=== PATIENT | male | born 1950 | race Caucasian/White ===

== ENCOUNTER 2018-06-22 22:58 | Inpatient (IN) | payer BC, MEDICARE, OTHER ==
--- NOTE | 2018-06-22 23:26 | ED ---
SOB HPI - General Chief Complaint: Shortness of Breath Stated Complaint: Chest pain/MAEVE Time Seen by Provider: 06/22/18 23:12 Source: patient Mode of arrival: ambulatory Limitations: no limitations - History of Present Illness MD Complaint: shortness of breath, chest pain Onset/Timin -: days(s) Severity: moderate Quality: aching Consistency: constant Improves With: nothing Worsens With: inspiration Known History Of: COPD Associated Symptoms: chest pain, pain with inspiration - Related Data Home Oxygen Therapy: No Home Medications Medication Instructions Recorded Confirmed Dicyclomine [Bentyl] 20 mg PO BID 10/12/14 12/27/14 Fluticasone Nasal [place] [Flonase 2 spray EA NOSTRIL BID 10/12/14 12/27/14 Nasal [place]] Lovastatin [Mevacor] 40 mg PO HS 10/12/14 12/27/14 Montelukast [Singulair] 10 mg PO DAILY 10/12/14 12/27/14 Omeprazole [PriLOSEC] 10 mg PO DAILY 10/12/14 12/27/14 traZODone HCL [Desyrel] 100 mg PO HS 10/12/14 12/27/14 Aspirin 325 mg PO DAILY 12/24/14 12/27/14 Allergies Allergy/AdvReac Type Severity Reaction Status Date / Time No Known Allergies Allergy Verified 06/22/18 23:05 Review of Systems ROS Statement: Those systems with pertinent positive or pertinent negative responses have been documented in the HPI. ROS Other: All systems not noted in ROS Statement are negative. Constitutional: Denies: fever Respiratory: Reports: cough, dyspnea Cardiovascular: Reports: chest pain. Denies: edema, syncope Gastrointestinal: Denies: abdominal pain, vomiting Genitourinary: Reports: frequency. Denies: dysuria, hematuria Musculoskeletal: Denies: back pain Skin: Denies: rash Neurological: Denies: headache Past Medical History Past Medical History: GERD/Reflux, Hyperlipidemia, Renal Disease History of Any Multi-Drug Resistant Organisms: None Reported Past Surgical History: Orthopedic Surgery Additional Past Surgical History / Comment(s): Polyps from previous colonoscopy, EGD. Minor surgery on R knee. Past Anesthesia/Blood Transfusion Reactions: No Reported Reaction Past Psychological History: No Psychological Hx Reported Smoking Status: Former smoker Past Alcohol Use History: Occasional Past Drug Use History: None Reported - Past Family History Mother Family Medical History: Cancer Additional Family Medical History / Comment(s): Colon General Exam Limitations: no limitations General appearance: alert, in no apparent distress Head exam: Present: atraumatic, normocephalic Eye exam: Present: normal appearance. Absent: scleral icterus, conjunctival injection ENT exam: Present: normal oropharynx Neck exam: Present: normal inspection Respiratory exam: Present: normal lung sounds bilaterally. Absent: respiratory distress, wheezes, rales, rhonchi, stridor, chest wall tenderness Cardiovascular Exam: Present: regular rate, normal rhythm, normal heart sounds. Absent: systolic murmur, diastolic murmur, rubs, gallop GI/Abdominal exam: Present: soft. Absent: distended, tenderness, guarding, rebound, mass Extremities exam: Present: normal inspection, normal capillary refill. Absent: pedal edema, calf tenderness Back exam: Present: normal inspection. Absent: CVA tenderness (R), CVA tenderness (L) Neurological exam: Present: alert Skin exam: Present: warm, dry, intact, normal color. Absent: rash Course Vital Signs 06/22/18 23:01 Temperature 98.7 F Pulse Rate 103 H Respiratory 18 Rate Blood Pressure 167/91 O2 Sat by Pulse 97 Oximetry Medical Decision Making - Lab Data Result diagrams: 06/22/18 23:20 06/22/18 23:20 Lab Results 06/22/18 06/22/18 06/22/18 Range/Units 23:20 23:20 23:20 WBC 13.1 H (3.8-10.6) k/uL RBC 4.68 (4.30-5.90) m/uL Hgb 14.0 (13.0-17.5) gm/dL Hct 38.8 L (39.0-53.0) % MCV 83.0 (80.0-100.0) fL MCH 29.9 (25.0-35.0) pg MCHC 36.1 (31.0-37.0) g/dL RDW 15.7 H (11.5-15.5) % Plt Count 227 (150-450) k/uL Neutrophils % 66 % Lymphocytes % 18 % Monocytes % 9 % Eosinophils % 4 % Basophils % 1 % Neutrophils # 8.6 H (1.3-7.7) k/uL Lymphocytes # 2.4 (1.0-4.8) k/uL Monocytes # 1.2 H (0-1.0) k/uL Eosinophils # 0.6 (0-0.7) k/uL Basophils # 0.1 (0-0.2) k/uL PT (9.0-12.0) sec INR (<1.2) APTT (22.0-30.0) sec D-Dimer (<0.60) mg/L FEU Sodium 139 (137-145) mmol/L Potassium 4.0 (3.5-5.1) mmol/L Chloride 100 (98-107) mmol/L Carbon Dioxide 27 (22-30) mmol/L Anion Gap 12 mmol/L BUN 37 H (9-20) mg/dL Creatinine 2.59 H (0.66-1.25) mg/dL Est GFR (CKD-EPI)AfAm 29 (>60 ml/min/1.73 sqM) Est GFR (CKD-EPI)NonAf 25 (>60 ml/min/1.73 sqM) Glucose 117 H (74-99) mg/dL Calcium 11.5 H (8.4-10.2) mg/dL Total Bilirubin 0.4 (0.2-1.3) mg/dL AST 27 (17-59) U/L ALT 38 (21-72) U/L Alkaline Phosphatase 84 (38-126) U/L Troponin I (0.000-0.034) ng/mL NT-Pro-B Natriuret Pep 110 pg/mL Total Protein 7.3 (6.3-8.2) g/dL Albumin 4.1 (3.5-5.0) g/dL Urine Color Urine Appearance (Clear) Urine pH (5.0-8.0) Ur Specific [place] (1.001-1.035) Urine Protein (Negative) Urine Glucose (UA) (Negative) Urine Ketones (Negative) Urine Blood (Negative) Urine Nitrite (Negative) Urine Bilirubin (Negative) Urine Urobilinogen (<2.0) mg/dL Ur Leukocyte Esterase (Negative) 06/22/18 06/22/18 06/23/18 Range/Units 23:20 23:20 00:46 WBC (3.8-10.6) k/uL RBC (4.30-5.90) m/uL Hgb (13.0-17.5) gm/dL Hct (39.0-53.0) % MCV (80.0-100.0) fL MCH (25.0-35.0) pg MCHC (31.0-37.0) g/dL RDW (11.5-15.5) % Plt Count (150-450) k/uL Neutrophils % % Lymphocytes % % Monocytes % % Eosinophils % % Basophils % % Neutrophils # (1.3-7.7) k/uL Lymphocytes # (1.0-4.8) k/uL Monocytes # (0-1.0) k/uL Eosinophils # (0-0.7) k/uL Basophils # (0-0.2) k/uL PT 9.5 (9.0-12.0) sec INR 0.9 (<1.2) APTT 25.1 (22.0-30.0) sec D-Dimer 1.71 H (<0.60) mg/L FEU Sodium (137-145) mmol/L Potassium (3.5-5.1) mmol/L Chloride (98-107) mmol/L Carbon Dioxide (22-30) mmol/L Anion Gap mmol/L BUN (9-20) mg/dL Creatinine (0.66-1.25) mg/dL Est GFR (CKD-EPI)AfAm (>60 ml/min/1.73 sqM) Est GFR (CKD-EPI)NonAf (>60 ml/min/1.73 sqM) Glucose (74-99) mg/dL Calcium (8.4-10.2) mg/dL Total Bilirubin (0.2-1.3) mg/dL AST (17-59) U/L ALT (21-72) U/L Alkaline Phosphatase (38-126) U/L Troponin I <0.012 (0.000-0.034) ng/mL NT-Pro-B Natriuret Pep pg/mL Total Protein (6.3-8.2) g/dL Albumin (3.5-5.0) g/dL Urine Color Light Yellow Urine Appearance Clear (Clear) Urine pH 7.0 (5.0-8.0) Ur Specific [place] 1.012 (1.001-1.035) Urine Protein Negative (Negative) Urine Glucose (UA) Negative (Negative) Urine Ketones Negative (Negative) Urine Blood Negative (Negative) Urine Nitrite Negative (Negative) Urine Bilirubin Negative (Negative) Urine Urobilinogen <2.0 (<2.0) mg/dL Ur Leukocyte Esterase Negative (Negative) - EKG Data -: EKG Interpreted by Me EKG shows normal: sinus rhythm, axis (Normal), intervals (Normal), QRS complexes (Normal), ST-T waves (Normal) Rate: normal (Rate 97 bpm) Disposition Clinical Impression: Chest pain Disposition: ADMITTED IP TO THIS HOSP Condition: Good Referrals: Samuel Brooke MD [Primary Care Provider] - 1-2 days
[2018-06-22 23:50] LABS: Basophils # (A) 0.1 k/uL (0-0.2); Basophils % (A) 1 %; Eosinophils # (A) 0.6 k/uL (0-0.7); Eosinophils % (A) 4 %; HCT 38.8 % (39.0-53.0); Lymphocytes # (A) 2.4 k/uL (1.0-4.8); Lymphocytes % (A) 18 %; MCH 29.9 pg (25.0-35.0); MCHC 36.1 g/dL (31.0-37.0); Mean Platelet Volume 10.8; Monocytes # (A) 1.2 k/uL (0-1.0); Monocytes % (A) 9 %; Neutrophils # (A) 8.6 k/uL (1.3-7.7); Neutrophils % (A) 66 %; Platelet Count 227 k/uL (150-450); RBC 4.68 m/uL (4.30-5.90); RDW 15.7 % (11.5-15.5); WBC 13.1 k/uL (3.8-10.6)
[2018-06-23] LABS: Albumin 4.1 g/dL (3.5-5.0); Calcium 11.5 mg/dL (8.4-10.2); Total Bilirubin 0.4 mg/dL (0.2-1.3); Total Protein 7.3 g/dL (6.3-8.2)
[2018-06-23 00:08] LABS: INR 0.9 (<1.2)
[2018-06-23 00:09] LABS: Partial Thromboplastin Time 25.1 sec (22.0-30.0); Prothrombin Time 9.5 sec (9.0-12.0)
[2018-06-23 00:13] LABS: D-Dimer 1.71 mg/L FEU (<0.60)
[2018-06-23] MEDS ORDERED: ENOXAPARIN 100 MG/ML SYRINGE SQ STA (00:30)
[2018-06-23 01:27] LABS: Appearance,Urine Clear (Clear); Bilirubin,Urine Negative (Negative); Blood,Urine Negative (Negative); Color,Urine Light Yellow; Glucose,Urine (UA) Negative (Negative); Ketones,Urine Negative (Negative); Leukocyte Esterase,Urine Negative (Negative); Nitrite,Urine Negative (Negative); Protein,Urine Negative (Negative); Specific Gravity,Urine 1.012 (1.001-1.035); Urobilinogen,Urine <2.0 mg/dL (<2.0)
--- NOTE | 2018-06-23 01:37 | XR ---
EXAM: XR Chest, 2 Views CLINICAL HISTORY: ITS.REASON XR Reason: difficulty breathing TECHNIQUE: Frontal and lateral views of the chest. COMPARISON: No relevant prior studies available. FINDINGS: Lungs: Left lower lobe atelectasis versus infiltrate. Pleural space: Small left pleural effusion. No pneumothorax. Heart: Unremarkable. No cardiomegaly. Mediastinum: Unremarkable. Bones/joints: No acute fracture. IMPRESSION: 1. Small left pleural effusion. 2. Left lower lobe atelectasis versus infiltrate. Correlate with CT.
[2018-06-23] MEDS ORDERED: NITROGLYCERIN SL TABS 0.4 MG TAB SUBLINGUAL PRN (02:17)
[2018-06-23] MEDS: ALBUTEROL NEBULIZED 2.5 MG/3 ML INHALATION SCH ×4 (07:34→19:48)
--- NOTE | 2018-06-23 07:40 | P.CRDCN ---
History of Present Illness Consult date: 06/23/18 Chief complaint: Chest pain History of present illness: This is a pleasant 67-year-old gentleman with a past medical history significant for chronic kidney disease presented to the hospital complaining of chest discomfort. For the last several days, he has been expressing chest discomfort for the last several days. The patient described the discomfort as a sharp kind of discomfort, on the left side of the chest, and clearly stated that the chest discomfort is worse once he takes a deep breath. The chest discomfort is not worse with exertion. No specific symptoms of shortness of breath, dizziness or lightheadedness, heart racing or fluttering, or syncope. The patient does not have any history of coronary artery disease, diabetes, hypertension, or dyslipidemia. 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 The EKG showed sinus rhythm without any ischemic ST or T-wave abnormalities. The cardiac enzymes were checked and came in to be unremarkable. The chest x-ra y did not show any acute abnormalities. A d-dimer came in to be abnormal and the patient is in process of having a VQ scan. Please note that the creatinine is quite abnormal and the patient stated that he was diagnosed with chronic kidney disease in the past. Past Medical History Past Medical History: COPD, GERD/Reflux, Hyperlipidemia History of Any Multi-Drug Resistant Organisms: None Reported Past Surgical History: Orthopedic Surgery Additional Past Surgical History / Comment(s): Polyps from previous colonoscopy, EGD. Minor surgery on R knee. Past Anesthesia/Blood Transfusion Reactions: No Reported Reaction Past Psychological History: No Psychological Hx Reported Smoking Status: Former smoker Past Alcohol Use History: Occasional Past Drug Use History: None Reported - Past Family History Mother Family Medical History: Cancer Additional Family Medical History / Comment(s): Colon Medications and Allergies Home Medications Medication Instructions Recorded Confirmed Type Dicyclomine [Bentyl] 20 mg PO BID 10/12/14 06/23/18 History Fluticasone Nasal [place] [Flonase 2 spray EA NOSTRIL BID 10/12/14 06/23/18 History Nasal [place]] Montelukast [Singulair] 10 mg PO DAILY 10/12/14 06/23/18 History traZODone HCL [Desyrel] 100 mg PO HS 10/12/14 06/23/18 History Aspirin 81 mg PO DAILY 12/24/14 06/23/18 History Allergies Allergy/AdvReac Type Severity Reaction Status Date / Time No Known Allergies Allergy Verified 06/22/18 23:05 Physical Exam Vitals: Vital Signs Temp Pulse Pulse Resp BP BP Pulse Ox 06/23/18 04:00 16 06/23/18 03:53 98.4 F 81 16 161/90 97 06/23/18 02:36 86 20 160/94 97 06/22/18 23:01 98.7 F 103 H 18 167/91 97 Intake and Output 06/22/18 06/23/18 06/23/18 22:59 06:59 14:59 Intake Total 30 Balance 30 Intake: Amount of Fluid Infused ( 30 ml) Other: Voiding Method Toilet # Voids 1 Weight 98.1 kg - Constitutional General appearance: no acute distress - Respiratory Respiratory: bilateral: CTA - Cardiovascular Rhythm: regular Heart sounds: normal: S1, S2 Abnormal Heart Sounds: systolic murmur Results 06/22/18 23:20 06/22/18 23:20 Cardiac Enzymes 06/22/18 06/22/18 06/23/18 Range/Units 23:20 23:20 05:34 AST 27 (17-59) U/L Troponin I <0.012 <0.012 (0.000-0.034) ng/mL Coagulation 06/22/18 Range/Units 23:20 PT 9.5 (9.0-12.0) sec APTT 25.1 (22.0-30.0) sec CBC 06/22/18 Range/Units 23:20 WBC 13.1 H (3.8-10.6) k/uL RBC 4.68 (4.30-5.90) m/uL Hgb 14.0 (13.0-17.5) gm/dL Hct 38.8 L (39.0-53.0) % Plt Count 227 (150-450) k/uL Comprehensive Metabolic Panel 06/22/18 Range/Units 23:20 Sodium 139 (137-145) mmol/L Potassium 4.0 (3.5-5.1) mmol/L Chloride 100 (98-107) mmol/L Carbon Dioxide 27 (22-30) mmol/L BUN 37 H (9-20) mg/dL Creatinine 2.59 H (0.66-1.25) mg/dL Glucose 117 H (74-99) mg/dL Calcium 11.5 H (8.4-10.2) mg/dL AST 27 (17-59) U/L ALT 38 (21-72) U/L Alkaline Phosphatase 84 (38-126) U/L Total Protein 7.3 (6.3-8.2) g/dL Albumin 4.1 (3.5-5.0) g/dL Current Medications Generic Name Dose Route Start Last Admin Trade Name Freq PRN Reason Stop Dose Admin Albuterol Sulfate 2.5 mg 06/23/18 08:00 06/23/18 07:34 Ventolin Nebulized INHALATION 2.5 mg RT-QID WALLY Administration Aspirin 325 mg 06/24/18 09:00 Aspirin PO DAILY WALLY Atorvastatin Calcium 10 mg 06/23/18 21:00 Lipitor PO HS WALLY Fluticasone Propionate 2 spray 06/23/18 09:00 Flonase Nasal [place] EA NOSTRIL BID WALLY Montelukast Sodium 10 mg 06/23/18 09:00 Singulair PO DAILY WALLY Nitroglycerin 0.4 mg 06/23/18 02:17 Nitrostat SUBLINGUAL Q5M PRN Chest Pain Pantoprazole Sodium 40 mg 06/23/18 09:00 Protonix PO DAILY WALLY Trazodone HCl 100 mg 06/23/18 21:00 Desyrel PO HS WALLY Intake and Output 06/22/18 06/23/18 06/23/18 22:59 06:59 14:59 Intake Total 30 Balance 30 Intake: Amount of Fluid Infused ( 30 ml) Other: Voiding Method Toilet # Voids 1 Weight 98.1 kg 06/22/18 23:20 06/22/18 23:20 Assessment and Plan Assessment: Assessment #1 atypical/pleuritic chest discomfort #2 abnormal d-dimer #3 chronic kidney disease Plan #1 acute coronary event was ruled out. The EKG is unremarkable and enzymes are unremarkable #2 PE to be ruled out. The patient is in process of having VQ scan #3 we'll get an echocardiogram was Doppler #4 follow-up with the patient. Thank you for allowing us participate in his care
[2018-06-23 10:15] LABS: Basophils % (A) 0 %; Eosinophils # (A) 0.4 k/uL (0-0.7); Eosinophils % (A) 3 %; HCT 39.6 % (39.0-53.0); HGB 13.1 gm/dL (13.0-17.5); Lymphocytes # (A) 1.8 k/uL (1.0-4.8); Lymphocytes % (A) 16 %; MCH 28.9 pg (25.0-35.0); MCHC 32.9 g/dL (31.0-37.0); MCV 87.7 fL (80.0-100.0); Mean Platelet Volume 8.4; Monocytes # (A) 1.1 k/uL (0-1.0); Monocytes % (A) 10 %; Neutrophils # (A) 7.7 k/uL (1.3-7.7); Neutrophils % (A) 69 %; Platelet Count 196 k/uL (150-450); RBC 4.52 m/uL (4.30-5.90); WBC 11.3 k/uL (3.8-10.6)
[2018-06-23 10:19] LABS: Calcium 11.4 mg/dL (8.4-10.2); Potassium 4.4 mmol/L (3.5-5.1)
--- NOTE | 2018-06-23 10:39 | NM ---
EXAMINATION TYPE: NM pul vent and perfuse DATE OF EXAM: 06/23/2018 COMPARISON: Chest x-ray 06/22/2018 HISTORY: Chest pain and difficulty breathing, cough TECHNIQUE: Utilizing inhalation of 35.7 mCi Tc 99m DTPA aerosol and intravenous injection of 5.0 mCi of Tc 99m MAA, ventilation and perfusion images are acquired post injection in multiple projections. FINDINGS: Ventilation/perfusion mismatches noted on the RAMIRO view in the left upper lobe. IMPRESSION: Intermediate probability for pulmonary embolism.
[2018-06-23] MEDS ORDERED: HEPARIN SODIUM,PORCINE 5,000 UNIT/ML 1 ML VIAL IV PRN (11:29)
[2018-06-23] MEDS ORDERED: HEPARIN SODIUM,PORCINE 10,000 UNIT/ML 1 ML VIAL IV ONE (11:29)
--- NOTE | 2018-06-23 11:58 | ECHOF ---
Referral Reason:cp MEASUREMENTS -------- HEIGHT: 182.9 cm WEIGHT: 98.0 kg BP: 157/90 RVIDd: 3.5 cm (< 3.3) IVSd: 1.5 cm (0.6 - 1.1) LVIDd: 4.9 cm (3.9 - 5.3) LVPWd: 1.5 cm (0.6 - 1.1) IVSs: 1.7 cm LVIDs: 3.4 cm LVPWs: 1.7 cm Ao Diam: 3.5 cm (2.0 - 3.7) AV Cusp: 2.5 cm (1.5 - 2.6) LA Diam: 2.7 cm (2.7 - 3.8) MV EXCURSION: 13.883 mm (> 18.000) MV EF SLOPE: 119 mm/s (70 - 150) EPSS: 0.6 cm MV E Mur[place]: 0.59 m/s MV DecT: 222 ms MV A [place]: 0.74 m/s MV E/A Ratio: 0.80 RAP: 5.00 mmHg RVSP: 24.34 mmHg FINDINGS -------- Sinus rhythm. This was a technically adequate study. The left ventricular size is normal. There is moderate concentric left ventricular hypertrophy. O verall left ventricular systolic function is low-normal with, an EF between 50 - 55 %. The right ventricle is mildly enlarged. The left atrial size is normal. The right atrial size is normal. The aortic valve is trileaflet and appears structurally normal. There is trace mitral regurgitation. Trace tricuspid regurgitation present. The right ventricular systolic pressure, as measured by Dopp ler, is 24.34mmHg. Pulmonic valve appears structurally normal. The aortic root size is normal. IVC Not well visulized. There is no pericardial effusion. CONCLUSIONS -------- 1. Sinus rhythm. 2. This was a technically adequate study. 3. The left ventricular size is normal. 4. There is moderate concentric left ventricular hypertrophy. 5. Overall left ventricular systolic function is low-normal with, an EF between 50 - 55 %. 6. The right ventricle is mildly enlarged. 7. The left atrial size is normal. 8. The right atrial size is normal. 9. The aortic valve is trileaflet and appears structurally normal. 10. There is trace mitral regurgitation. 11. Trace tricuspid regurgitation present. 12. The right ventricular systolic pressure, as measured by Doppler, is 24.34mmHg. 13. Pulmonic valve appears structurally normal. 14. The aortic root size is normal. 15. IVC Not well visulized. 16. There is no pericardial effusion. [employer]KER: Fallon Lopez RDCS
--- NOTE | 2018-06-23 12:07 | P.CNPUL ---
History of Present Illness Consult date: 06/23/18 Reason for consult: chest pain History of present illness: This is a 67-year-old male patient, an ex-smoker who quit smoking. The patient carries at least [id number] smoking history. The patient is retired. The patient came into the emergency department yesterday because of an acute left- sided chest pain which is pleuritic in nature. No cough. No sputum production. No fever or chills. No cough pain. No leg swelling. No previous history of DVT or pulmonary embolism. No 72 coronary artery disease. The patient's cardiac enzymes have been negative. D-dimer is at 1.7. The patient had an abnormal renal function with a creatinine of 2.59. The chronicity of this issue is not known. White cell count is not elevated at 11.3. The BNP is not elevated. The patient is currently on IV heparin. The patient was seen by cardiology. Echo was ordered and results are still pending. Meanwhile, a VQ scan was ordered and it was of a intermediate probability with some mismatches noted in the left upper lobe area. The chest x-ray shows limited infiltration of the left lung base along with some diminished breath sounds on examination. Review of Systems Constitutional: Denies chills, Denies fever Eyes: denies as per HPI, denies blurred vision, denies bulging eye, denies decreased vision, denies diplopia, denies discharge, denies dry eye, denies irritation, denies itching, denies pain, denies photophobia, denies loss of peripheral vision, denies loss of vision, denies tunnel vision/blind spots Ears: deny: decreased hearing, ear discharge, earache, tinnitus Ears, nose, mouth and throat: Denies headache, Denies sore throat Breasts: absent: as per HPI, gynecomastia Cardiovascular: Reports chest pain Respiratory: Denies cough Gastrointestinal: Reports as per HPI Genitourinary: Reports as per HPI Musculoskeletal: Reports as per HPI Musculoskeletal: absent: ankle pain, ankle stiffness, ankle swelling, as per HPI, elbow pain, elbow stiffness, elbow swelling, foot pain, foot stiffness, foot swelling, hand pain, hand stiffness, hand swelling, hip pain, hip stiffness, hip swelling, knee pain, knee stiffness, knee swelling, shoulder p ain, shoulder stiffness, shoulder swelling, wrist pain, wrist stiffness, wrist swelling Integumentary: Reports as per HPI Neurological: Reports as per HPI Psychiatric: Reports as per HPI Endocrine: Reports as per HPI Hematologic/Lymphatic: Reports as per HPI Allergic/Immunologic: Reports as per HPI Past Medical History Past Medical History: COPD, GERD/Reflux, Hyperlipidemia History of Any Multi-Drug Resistant Organisms: None Reported Past Surgical History: Orthopedic Surgery Additional Past Surgical History / Comment(s): Polyps from previous colonoscopy, EGD. Minor surgery on R knee. Past Anesthesia/Blood Transfusion Reactions: No Reported Reaction Past Psychological History: No Psychological Hx Reported Smoking Status: Former smoker Past Alcohol Use History: Occasional Past Drug Use History: None Reported - Past Family History Mother Family Medical History: Cancer Additional Family Medical History / Comment(s): Colon Medications and Allergies Home Medications Medication Instructions Recorded Confirmed Type Dicyclomine [Bentyl] 20 mg PO DAILY 10/12/14 06/23/18 History Fluticasone Nasal [place] [Flonase 2 spray EA NOSTRIL BID 10/12/14 06/23/18 History Nasal [place]] Montelukast [Singulair] 10 mg PO DAILY 10/12/14 06/23/18 History traZODone HCL [Desyrel] 100 mg PO HS 10/12/14 06/23/18 History Aspirin EC [Ecotrin Low Dose] 81 mg PO DAILY 06/23/18 06/23/18 History Budesonide-Formot 160-4.5 Mcg 2 puff INHALATION RT-BID 06/23/18 06/23/18 History [Symbicort 160-4.5 Mcg Inhaler] Allergies Allergy/AdvReac Type Severity Reaction Status Date / Time No Known Allergies Allergy Verified 06/23/18 08:44 Physical Exam Vitals: Vital Signs Temp Pulse Pulse Resp BP BP Pulse Ox 06/23/18 10:52 80 06/23/18 10:46 80 06/23/18 07:48 76 06/23/18 07:36 80 97 06/23/18 07:25 98.2 F 79 18 157/90 97 06/23/18 04:00 16 06/23/18 03:53 98.4 F 81 16 161/90 97 06/23/18 02:36 86 20 160/94 97 06/22/18 23:01 98.7 F 103 H 18 167/91 97 Intake and Output 06/22/18 06/23/18 06/23/18 22:59 06:59 14:59 Intake Total 30 Balance 30 Intake: Amount of Fluid Infused ( 30 ml) Other: Voiding Method Toilet Toilet # Voids 1 Weight 98.1 kg The patient appeared well nourished and normally developed. Vital signs as documented. Head exam is unremarkable. No scleral icterus or corneal arcus noted. Neck is without jugular venous distension, thyromegaly, or carotid bruits. Carotid upstrokes are brisk bilaterally. Lungs revealed diminished breath sounds bilaterally however it's minimally diminished in the left lung base. No wheezes. No rhonchi. No crackles.. Cardiac exam reveals the PMI to be normally sized and situated. Rhythm is regular. First and second heart sounds normal. No murmurs, rubs or gallops. Abdominal exam reveals normal bowel sounds, no masses, no organomegaly and no aortic enlargement. Extremities are nonedematous and both femoral and pedal pulses are normal.Examination of the skin revealed no evidence of significant rashes, suspicious appearing nevi or other concerning lesions. Neurologically the patient is awake and alert and there is no focal neurological deficits. Psychiatric the patient is within normal without any active anxiety or depression. Results - Laboratory Findings CBC and BMP: 06/23/18 05:34 06/23/18 05:34 PT/INR, D-dimer PT 9.5 sec (9.0-12.0) 06/22/18 23:20 INR 0.9 (<1.2) 06/22/18 23:20 D-Dimer 1.71 mg/L FEU (<0.60) H 06/22/18 23:20 Abnormal lab findings: Abnormal Labs 06/22/18 06/22/18 06/22/18 23:20 23:20 23:20 WBC 13.1 H Hct 38.8 L RDW 15.7 H Neutrophils # 8.6 H Monocytes # 1.2 H D-Dimer 1.71 H BUN 37 H Creatinine 2.59 H Glucose 117 H Calcium 11.5 H 06/23/18 06/23/18 05:34 05:34 WBC 11.3 H Hct RDW Neutrophils # Monocytes # 1.1 H D-Dimer BUN 34 H Creatinine 2.52 H Glucose 108 H Calcium 11.4 H - Diagnostic Findings Chest x-ray: image reviewed Assessment and Plan Plan: Assessment 1 acute pleuritic left-sided chest pain with a mild elevation of the d-dimer at 1.7 and abnormal VQ scan with a mismatch involving left upper lobe. Consider pulmonary embolism. Currently on IV heparin 2 Abnormal creatinine, chronic kidney disease and the patient has a normal urinalysis 3 COPD 4 hyperlipidemia 5 history of depression 6 hypercalcemia with a calcium level of 11.5 Plan Will continued IV heparin for now as there is a quite high suspicion for pulmonary embolism. I am unable to do a CT angios of the chest. Nevertheless, I think we should hydrate the patient IV fluids and consider CT angiogram if the renal function normalizes. Meanwhile, we can get a Doppler of the lower extremity to see there is any DVT involving the lower extremities. Echocardiogram to assess LV function and look for any significant pulmonary hypertension. Intact PTH level. Monitor electrolytes. We'll continue to follow.
[2018-06-23 12:15] LABS: Basophils # (A) 0.1 k/uL (0-0.2); Basophils % (A) 1 %; Eosinophils # (A) 0.2 k/uL (0-0.7); Eosinophils % (A) 2 %; HCT 40.2 % (39.0-53.0); HGB 14.2 gm/dL (13.0-17.5); Lymphocytes # (A) 1.4 k/uL (1.0-4.8); Lymphocytes % (A) 12 %; MCH 29.8 pg (25.0-35.0); MCHC 35.2 g/dL (31.0-37.0); MCV 84.6 fL (80.0-100.0); Mean Platelet Volume 7.6; Monocytes # (A) 1.1 k/uL (0-1.0); Monocytes % (A) 9 %; Neutrophils % (A) 75 %; Platelet Count 238 k/uL (150-450); RBC 4.75 m/uL (4.30-5.90); RDW 13.4 % (11.5-15.5)
[2018-06-23 12:24] LABS: INR 0.9 (<1.2); Partial Thromboplastin Time 28.5 sec (22.0-30.0); Prothrombin Time 9.8 sec (9.0-12.0)
--- NOTE | 2018-06-23 12:56 | P.HPIM ---
History of Present Illness H&P Date: 06/23/18 Chief Complaint: Chest pain and shortness of breath This is a 67-year-old male, patient of Dr. Brooke. He has a known past medical history of COPD, GERD, hyperlipidemia and possible chronic kidney disease. He is also an ex smoker. Patient presents to the ER with complaints of left-sided chest pain. Pain has been intermittent worse with taking a deep breath. Initially he was admitted to observation and cardiology was consulted. Troponins are negative 2 sets. EKG showing normal sinus rhythm. Patient was found have elevated d-dimer of 1.71. He underwent a VQ scan showing intermediate probability of PE. He was started on IV heparin and pulmonary service was placed on consults. Patient had chest x-ray showing small left pleural effusion left lower lobe atelectasis versus infiltrate. Patient denies cough, fever, chills or sweats. Denies any nausea or vomiting. Denies any bowel movement changes or urinary symptoms. Patient does report where the left-sided chest pain is located behind the left breast he did have swelling and felt a lump in that area with nipple drainage that had started in November. I'm he has had no further drainage since November. He reports still feeling a lump. There is no redness or erythema. Ultrasound of the left breast and consult for infectious disease in place. Creatinine is 2.59. Patient reports the last time he had seen Dr. Brooke his kidneys had come back to normal. Nephrology will be consulted. Patient also had elevated calcium level of 11.5. Repeat calcium of 11.4. Pulmonary has ordered parathyroid hormone level. Patient will be changed to inpatient status. Patient is also receiving IV fluids and PTH level ordered by pulmonary service. Review of Systems Please refer to HPI otherwise unremarkable Past Medical History Past Medical History: COPD, GERD/Reflux, Hyperlipidemia History of Any Multi-Drug Resistant Organisms: None Reported Past Surgical History: Orthopedic Surgery Additional Past Surgical History / Comment(s): Polyps from previous colonoscopy, EGD. Minor surgery on R knee. Past Anesthesia/Blood Transfusion Reactions: No Reported Reaction Past Psychological History: No Psychological Hx Reported Smoking Status: Former smoker Past Alcohol Use History: Occasional Past Drug Use History: None Reported - Past Family History Mother Family Medical History: Cancer Additional Family Medical History / Comment(s): Colon Medications and Allergies Home Medications Medication Instructions Recorded Confirmed Type Dicyclomine [Bentyl] 20 mg PO DAILY 10/12/14 06/23/18 History Fluticasone Nasal [place] [Flonase 2 spray EA NOSTRIL BID 10/12/14 06/23/18 History Nasal [place]] Montelukast [Singulair] 10 mg PO DAILY 10/12/14 06/23/18 History traZODone HCL [Desyrel] 100 mg PO HS 10/12/14 06/23/18 History Aspirin EC [Ecotrin Low Dose] 81 mg PO DAILY 06/23/18 06/23/18 History Budesonide-Formot 160-4.5 Mcg 2 puff INHALATION RT-BID 06/23/18 06/23/18 History [Symbicort 160-4.5 Mcg Inhaler] Allergies Allergy/AdvReac Type Severity Reaction Status Date / Time No Known Allergies Allergy Verified 06/23/18 08:44 Physical Exam Vitals: Vital Signs Temp Pulse Pulse Resp BP BP Pulse Ox 06/23/18 11:40 98.2 F 94 18 165/90 96 06/23/18 10:52 80 06/23/18 10:46 80 06/23/18 07:48 76 06/23/18 07:36 80 97 06/23/18 07:25 98.2 F 79 18 157/90 97 06/23/18 04:00 16 06/23/18 03:53 98.4 F 81 16 161/90 97 06/23/18 02:36 86 20 160/94 97 06/22/18 23:01 98.7 F 103 H 18 167/91 97 Intake and Output 06/22/18 06/23/18 06/23/18 22:59 06:59 14:59 Intake Total 30 Balance 30 Intake: Amount of Fluid Infused ( 30 ml) Other: Voiding Method Toilet Toilet # Voids 1 Weight 98.1 kg Head normocephalic Neck supple Lungs clear to auscultation bilaterally no wheezing or crackles Heart regular rate and rhythm S1-S2, no rub or gallop Abdomen is soft nontender nondistended positive bowel sounds no hepatosplenomegaly Extremities no edema Neuro alert and orientated to 3 Breast: Left breast tender above the nipple at 12 o'clock position. Small tender lump is palpable. No redness. No drainage. However right breast also has the same raised area but is nontender Results CBC & Chem 7: 06/23/18 11:57 06/23/18 05:34 Labs: Abnormal Lab Results - Last 24 Hours (Table) 06/22/18 06/22/18 06/22/18 Range/Units 23:20 23:20 23:20 WBC 13.1 H (3.8-10.6) k/uL Hct 38.8 L (39.0-53.0) % RDW 15.7 H (11.5-15.5) % Neutrophils # 8.6 H (1.3-7.7) k/uL Monocytes # 1.2 H (0-1.0) k/uL D-Dimer 1.71 H (<0.60) mg/L FEU BUN 37 H (9-20) mg/dL Creatinine 2.59 H (0.66-1.25) mg/dL Glucose 117 H (74-99) mg/dL Calcium 11.5 H (8.4-10.2) mg/dL 06/23/18 06/23/18 06/23/18 Range/Units 05:34 05:34 11:57 WBC 11.3 H 12.0 H (3.8-10.6) k/uL Hct (39.0-53.0) % RDW (11.5-15.5) % Neutrophils # 9.0 H (1.3-7.7) k/uL Monocytes # 1.1 H 1.1 H (0-1.0) k/uL D-Dimer (<0.60) mg/L FEU BUN 34 H (9-20) mg/dL Creatinine 2.52 H (0.66-1.25) mg/dL Glucose 108 H (74-99) mg/dL Calcium 11.4 H (8.4-10.2) mg/dL Thrombosis Risk Factor Assmnt - Choose All That Apply Any of the Below Risk Factors Present?: Yes Each Factor Represents 1 point: Abnormal pulmonary function (COPD), Hx of IBD, Obesity (BMI >25) Other Risk Factors: No Other congenital or acquired thrombophilia - If yes, enter type in comment: No Thrombosis Risk Factor Assessment Total Risk Factor Score: 3 Thrombosis Risk Factor Assessment Level: Moderate Risk Assessment and Plan Assessment: 1. Acute left-sided pleuritic chest pain: With elevated d-dimer and VQ scan showing intermediate probability of PE. Patient has been placed on IV heparin. Pulmonary service has been consulted and appreciate their input. They have ordered venous Dopplers to rule out DVT. We are unable to do a CTA of the chest due to elevated creatinine. Pulmonary has started IV fluids and if kidney functions normalize may consider CTA of the chest 2. Abnormal creatinine with possible chronic kidney disease. Creatinine 2.59. Consults nephrology. Continue with IV fluid hydration. Baseline creatinine unknown. 3. Hypercalcemia with calcium level of 11.5. Agree with checking a PTH 4. Hyperlipidemia 5. History of COPD stable 6. Atelectasis versus infiltrate noted on chest x-ray add incentive spirometer. Patient denies any significant cough no fever. White count is 12. We'll monitor. 7. GERD GI prophylaxis Protonix and DVT prophylaxis IV heparin Time with Patient: Greater than 30 (Greater than 50% of the total time spent in counseling and coordination of care.I performed an examination of the patient and discussed their management with the physician Swimming Pool Cleaner. I have reviewed the Physician Swimming Pool Cleaner's notes and agree with the documented findings and plan of care)
[2018-06-23] MEDS: HEPARIN SOD,PORK IN 0.45% NACL 25,000 UNIT in 0.45% NACL 1 250ML.BAG IV SCH ×2 (13:06→22:33)
[2018-06-23] MEDS: MONTELUKAST 10 MG TAB PO SCH (13:10)
[2018-06-23] MEDS: PANTOPRAZOLE 40 MG TABLET PO SCH (13:10)
[2018-06-23] MEDS: FLUTICASONE 50MCG/SPRAY NASAL 16GM EA NOSTRIL SCH ×2 (13:10→21:21)
--- NOTE | 2018-06-23 13:30 | USB ---
Reason for exam: clinical finding. US Breast LT Left complete breast ultrasound includes all four quadrants, the retroareolar region and axilla. Finding demonstrates a 1.4 x 0.7cm solid, hypoechoic, vascular lesion at the posterior nipple. ASSESSMENT: Probably benign, BI-RAD 3 RECOMMENDATION: Ultrasound of the left breast in 3 months. (3-6 months) Manage patient on a clinical basis.
--- NOTE | 2018-06-23 15:58 | CT ---
EXAMINATION TYPE: CT chest wo con DATE OF EXAM: 06/23/2018 COMPARISON: None HISTORY: abnormal cxr CT DLP: 473.[address] of the chest was performed with lung and mediastinal window settings submitted. The la ck of contrast limits evaluation of the vascular, mediastinal and parenchymal structures including th e upper abdomen. LUNGS: Pleural based airspace consolidation left lower lobe may reflect pneumonia. Underlying mass is not excluded and clinical correlation as well as follow-up until resolution is advised. Additional s maller patchy density left upper lobe adjacent to the fissure. Mild dependent right basilar atelectas is. Trace left-sided pleural effusion. MEDIASTINUM/SERGE: Thoracic aorta is of normal caliber with limited evaluation given lack of contrast . The heart is not enlarged. No evidence for mediastinal mass. No lymph nodes greater than 1cm. UPPER ABDOMEN: No significant abnormality is seen. OTHER: No significant other abnormality. IMPRESSION: 1. Correlate for left lower lobe pneumonia. Strict clinical correlation however is advised as well a s follow-up until resolution.
--- NOTE | 2018-06-23 16:30 | US ---
EXAMINATION TYPE: US venous doppler duplex LE DATE OF EXAM: 06/23/2018 4:25 PM COMPARISON: NONE CLINICAL HISTORY: rule out DVT. SOB. No leg pain or swelling. On heparin. SIDE PERFORMED: Bilateral TECHNIQUE: The lower extremity deep venous system is examined utilizing real time linear array sonog bel with graded compression, doppler sonography and color-flow sonography. VESSELS IMAGED: External Iliac Vein (EIV) Common Femoral Vein Deep Femoral Vein Greater Saphenous Vein * Femoral Vein Popliteal Vein Small Saphenous Vein * Proximal Calf Veins (* superficial vessels) Right Leg: Negative for DVT Left Leg: Negative for DVT IMPRESSION: No evidence for DVT at this time.
[2018-06-23] MEDS: SODIUM CHLORIDE 0.9% 1,000 ML IV SCH ×3 (16:45→22:33)
--- NOTE | 2018-06-23 21:18 | P.CONS ---
History of Present Illness - Reason for Consult Consult date: 06/23/18 - Chief Complaint Left-sided chest pain - History of Present Illness 67-year-old male who follows in outpatient setting for his difficulty of chronic kidney disease, hyperlipidemia GERD and COPD presented to the emergency center with a 2 day history of discomfort into his left chest. The patient relates that he had the relatively sudden onset of the discomfort to his left chest. He noticed that some physicians were very painful especially laying on his left chest and taking a deep breath and coughing caused more pain. However he was also more short of breath. Because the shortness of breath discomforts continued presented emergency center for evaluation. Because of his chest pain the patient underwent evaluation and there was concerns for underlying pulmonary embolus because of the elevated d-dimer. The patient did have a VQ scan performed within intermediate probability of PE however with his what appears to be acute renal failure CT angiogram is not possible. Computed tomography scan of the chest that was then performed without contrast. The patient has had ultrasound of the chest to evaluate the discomfort to the left nipple area. He relates that he did have a one-time event of some drainage from the left nipple several months ago but has not continued but does seem to have some intermittent discomfort at that site. He has noticed no other masses on the chest wall and no swelling lymph nodes. Due to her shortness of breath he has been seen by audiology nephrology and cardiology. Does not appear to have an acute myocardial event at this time. Review of Systems 67-year-old male with feeling well but is denying high-grade fevers chills or rigors HEENT:Denies headache or acute visual change. Denies sinus or mouth disc omforts. Denies neck stiffness or pain. Denies significant oral cavity pain. Denies difficulty on swallowing. Lungs: Developed shortness of breath but is not having caused from production or hemoptysis Cardiovascular: Some shortness of breath with some left-sided chest pain that radiates from his left chest down his flank at times worsened with coughing and certain positions like laying on the left side Gastrointestinal:Denies nausea, vomiting, diarrhea, constipation, hematemesis, melena, hematochezia. No no significant change of bowel habit noticed. Musculoskeletal: denies significant myalgias or arthralgias. No new joint swelling. Denies new back pain. Skin: Denies new rash or lesions. No new ulcers or wounds are related.. Neuro: Denies headache or visual change. Denies any new onset weakness or difficulty with ambulation. Denies falls or seizures. Psychiatric:Denies anxiety or depression. Endocrine: His exhibit more fatigued but weight is stable with no edema occur ring the last several days Past Medical History Past Medical History: COPD, GERD/Reflux, Hyperlipidemia History of Any Multi-Drug Resistant Organisms: None Reported Past Surgical History: Orthopedic Surgery Additional Past Surgical History / Comment(s): Polyps from previous colonoscopy, EGD. Minor surgery on R knee. Past Anesthesia/Blood Transfusion Reactions: No Reported Reaction Past Psychological History: No Psychological Hx Reported Additional Psychological History / Comment(s): and lives in the family home with his and adult son does live with them. Was a tobacco smoker but stopped several years ago but does continue utilize cigars and did stop to tobacco several years ago also. No alcohol use. Obtaining a puppy about 11 weeks ago. No international travel. Was in the [employer] for 3 years Smoking Status: Former smoker Past Alcohol Use History: Occasional Past Drug Use History: None Reported - Past Family History Mother Family Medical History: Cancer Additional Family Medical History / Comment(s): Colon Medications and Allergies Home Medications and Allergies Comment(s): Current Medications Hydrocodone Bitart/Acetaminophen ([place] 5-325) 1 each PO Q4HR PRN PRN Reason: Pain Albuterol Sulfate (Ventolin Nebulized) 2.5 mg INHALATION RT-QID [facility] Last Admin: 06/23/18 19:48 Dose: 2.5 mg Documented by: Aspirin (Aspirin) 325 mg PO DAILY [facility] Atorvastatin Calcium (Lipitor) 10 mg PO HS [facility] Fluticasone Propionate (Flonase Nasal [place]) 2 spray EA NOSTRIL BID [facility] Last Admin: 06/23/18 13:10 Dose: 2 spray Documented by: Heparin Sodium (Porcine) (Heparin) 0 unit IV PER PROTOCOL PRN; Protocol PRN Reason: Low PTT Heparin Sodium/Sodium Chloride (25,000 unit/ Sodium Chloride) 250 mls @ 17.658 mls/hr IV .[id number] [facility]; Protocol Last Admin: 06/23/18 13:06 Dose: 18 units/kg/hr, 17.658 mls/hr Documented by: Sodium Chloride (Saline 0.9%) 1,000 mls @ 150 mls/hr IV .[id number] [facility] Last Admin: 06/23/18 16:45 Dose: 150 mls/hr Documented by: Montelukast Sodium (Singulair) 10 mg PO DAILY [facility] Last Admin: 06/23/18 13:10 Dose: 10 mg Documented by: Nitroglycerin (Nitrostat) 0.4 mg SUBLINGUAL Q5M PRN PRN Reason: Chest Pain Pantoprazole Sodium (Protonix) 40 mg PO DAILY [facility] Last Admin: 06/23/18 13:10 Dose: 40 mg Documented by: Trazodone HCl (Desyrel) 100 mg PO [facility] Home Medications Medication Instructions Recorded Confirmed Type Dicyclomine [Bentyl] 20 mg PO DAILY 10/12/14 06/23/18 History Fluticasone Nasal [place] [Flonase 2 spray EA NOSTRIL BID 10/12/14 06/23/18 History Nasal [place]] Montelukast [Singulair] 10 mg PO DAILY 10/12/14 06/23/18 History traZODone HCL [Desyrel] 100 mg PO 10/12/14 06/23/18 History Aspirin EC [Ecotrin Low Dose] 81 mg PO DAILY 06/23/18 06/23/18 History Budesonide-Formot 160-4.5 Mcg 2 puff INHALATION RT-BID 06/23/18 06/23/18 History [Symbicort 160-4.5 Mcg Inhaler] Allergies Allergy/AdvReac Type Severity Reaction Status Date / Time No Known Allergies Allergy Verified 06/23/18 08:44 Physical Exam Vitals: Vital Signs Temp Pulse Pulse Resp BP BP BP 06/23/18 20:00 99.2 F 91 16 172/77 06/23/18 19:59 89 06/23/18 19:49 88 06/23/18 16:37 88 06/23/18 16:27 84 06/23/18 15:31 98.7 F 86 18 155/83 06/23/18 11:40 98.2 F 94 18 165/90 06/23/18 10:52 80 06/23/18 10:46 80 06/23/18 07:48 76 06/23/18 07:36 80 06/23/18 07:25 98.2 F 79 18 157/90 06/23/18 04:00 16 06/23/18 03:53 98.4 F 81 16 161/90 06/23/18 02:36 86 20 160/94 06/22/18 23:01 98.7 F 103 H 18 167/91 Pulse Ox 06/23/18 20:00 97 06/23/18 19:59 06/23/18 19:49 06/23/18 16:37 06/23/18 16:27 06/23/18 15:31 97 06/23/18 11:40 96 06/23/18 10:52 06/23/18 10:46 06/23/18 07:48 06/23/18 07:36 97 06/23/18 07:25 97 06/23/18 04:00 06/23/18 03:53 97 06/23/18 02:36 97 06/22/18 23:01 97 Intake and Output 06/23/18 06/23/18 06/23/18 06:59 14:59 22:59 Intake Total 30 636 236 Balance 30 636 236 Intake: Amount of Fluid Infused ( 30 ml) Oral 636 236 Other: Voiding Method Toilet Toilet Toilet # Voids 1 1 Weight 98.1 kg 67-year-old male who is uncomfortable but not in severe distress. HEENT: Anicteric conjunctiva are pink and moist nasal mucosa grossly intact without significant lesions, there is no thrush. Neck: The neck is supple without significant lymphadenopathy or thyromegaly. Lungs: They're symmetrical bilateral air entry, there are a few crackles at left base and a small area of egophony is noted to the left base. No dullness is noted no changes of tactile fremitus Heart: Regular rate and rhythm with an audible S1-S2 soft S4 2/6 systolic murmur left sternal border There is no significant murmur click or rub, PMI was nondisplaced. Abdomen: Positive bowel sounds soft and nontender without palpable masses or org anomegaly. There was no guarding or rebound. Extremities: The upper extremities have excellent pulses they are symmetric, no significant petechiae or telangiectasia. No splinter hemorrhages were noted. The lower extremities are free from significant edema. The peripheral pulses were 2+ and symmetric. Neuro: Awake alert oriented to person place and time. There are no acute new gross focal sensory motor deficits. Chest wall is evaluated there is evidence of no significant lesion or mass to th e right nipple. Left nipple has a small area of some slight fullness inferior to the nipple. There is nothing expressible. There was no lymphadenopathy in the left axilla or left supraclavicular node. No other abnormal lymph nodes are noted. The skin is otherwise without any rash Results CBC & Chem 7: 06/23/18 11:57 06/23/18 05:34 Labs: Abnormal Lab Results - Last 24 Hours (Table) 06/22/18 06/22/18 06/22/18 Range/Units 23:20 23:20 23:20 WBC 13.1 H (3.8-10.6) k/uL Hct 38.8 L (39.0-53.0) % RDW 15.7 H (11.5-15.5) % Neutrophils # 8.6 H (1.3-7.7) k/uL Monocytes # 1.2 H (0-1.0) k/uL APTT (22.0-30.0) sec D-Dimer 1.71 H (<0.60) mg/L FEU BUN 37 H (9-20) mg/dL Creatinine 2.59 H (0.66-1.25) mg/dL Glucose 117 H (74-99) mg/dL Calcium 11.5 H (8.4-10.2) mg/dL 06/23/18 06/23/18 06/23/18 Range/Units 05:34 05:34 11:57 WBC 11.3 H 12.0 H (3.8-10.6) k/uL Hct (39.0-53.0) % RDW (11.5-15.5) % Neutrophils # 9.0 H (1.3-7.7) k/uL Monocytes # 1.1 H 1.1 H (0-1.0) k/uL APTT (22.0-30.0) sec D-Dimer (<0.60) mg/L FEU BUN 34 H (9-20) mg/dL Creatinine 2.52 H (0.66-1.25) mg/dL Glucose 108 H (74-99) mg/dL Calcium 11.4 H (8.4-10.2) mg/dL 06/23/18 Range/Units 19:28 WBC (3.8-10.6) k/uL Hct (39.0-53.0) % RDW (11.5-15.5) % Neutrophils # (1.3-7.7) k/uL Monocytes # (0-1.0) k/uL APTT 64.4 H (22.0-30.0) sec D-Dimer (<0.60) mg/L FEU BUN (9-20) mg/dL Creatinine (0.66-1.25) mg/dL Glucose (74-99) mg/dL Calcium (8.4-10.2) mg/dL Laboratory Results WBC 12.0 k/uL (3.8-10.6) H 06/23/18 11:57 RBC 4.75 m/uL (4.30-5.90) 06/23/18 11:57 Hgb 14.2 gm/dL (13.0-17.5) 06/23/18 11:57 Hct 40.2 % (39.0-53.0) 06/23/18 11:57 MCV 84.6 fL (80.0-100.0) 06/23/18 11:57 MCH 29.8 pg (25.0-35.0) 06/23/18 11:57 MCHC 35.2 g/dL (31.0-37.0) 06/23/18 11:57 RDW 13.4 % (11.5-15.5) 06/23/18 11:57 Plt Count 238 k/uL (150-450) 06/23/18 11:57 Neutrophils % 75 % 06/23/18 11:57 Lymphocytes % 12 % 06/23/18 11:57 Monocytes % 9 % 06/23/18 11:57 Eosinophils % 2 % 06/23/18 11:57 Basophils % 1 % 06/23/18 11:57 Neutrophils # 9.0 k/uL (1.3-7.7) H 06/23/18 11:57 Lymphocytes # 1.4 k/uL (1.0-4.8) 06/23/18 11:57 Monocytes # 1.1 k/uL (0-1.0) H 06/23/18 11:57 Eosinophils # 0.2 k/uL (0-0.7) 06/23/18 11:57 Basophils # 0.1 k/uL (0-0.2) 06/23/18 11:57 PT 9.8 sec (9.0-12.0) 06/23/18 11:57 INR 0.9 (<1.2) 06/23/18 11:57 APTT 64.4 sec (22.0-30.0) H 06/23/18 19:28 D-Dimer 1.71 mg/L FEU (<0.60) H 06/22/18 23:20 Sodium 139 mmol/L (137-145) 06/23/18 05:34 Potassium 4.4 mmol/L (3.5-5.1) 06/23/18 05:34 Chloride 104 mmol/L (98-107) 06/23/18 05:34 Carbon Dioxide 28 mmol/L (22-30) 06/23/18 05:34 Anion Gap 7 mmol/L 06/23/18 05:34 BUN 34 mg/dL (9-20) H 06/23/18 05:34 Creatinine 2.52 mg/dL (0.66-1.25) H 06/23/18 05:34 Est GFR (CKD-EPI)AfAm 30 (>60 ml/min/1.73 sqM) 06/23/18 05:34 Est GFR (CKD-EPI)NonAf 26 (>60 ml/min/1.73 sqM) 06/23/18 05:34 Glucose 108 mg/dL (74-99) H 06/23/18 05:34 Calcium 11.4 mg/dL (8.4-10.2) H 06/23/18 05:34 Total Bilirubin 0.4 mg/dL (0.2-1.3) 06/22/18 23:20 AST 27 U/L (17-59) 06/22/18 23:20 ALT 38 U/L (21-72) 06/22/18 23:20 Alkaline Phosphatase 84 U/L (38-126) 06/22/18 23:20 Troponin I <0.012 ng/mL (0.000-0.034) 06/23/18 11:02 NT-Pro-B Natriuret Pep 110 pg/mL 06/22/18 23:20 Total Protein 7.3 g/dL (6.3-8.2) 06/22/18 23:20 Albumin 4.1 g/dL (3.5-5.0) 06/22/18 23:20 PTH Intact 20.8 pg/mL (14.0-72.0) 06/23/18 12:00 Urine Color Light Yellow 06/23/18 00:46 Urine Appearance Clear (Clear) 06/23/18 00:46 Urine pH 7.0 (5.0-8.0) 06/23/18 00:46 Ur Specific [place] 1.012 (1.001-1.035) 06/23/18 00:46 Urine Protein Negative (Negative) 06/23/18 00:46 Urine Glucose (UA) Negative (Negative) 06/23/18 00:46 Urine Ketones Negative (Negative) 06/23/18 00:46 Urine Blood Negative (Negative) 06/23/18 00:46 Urine Nitrite Negative (Negative) 06/23/18 00:46 Urine Bilirubin Negative (Negative) 06/23/18 00:46 Urine Urobilinogen <2.0 mg/dL (<2.0) 06/23/18 00:46 Ur Leukocyte Esterase Negative (Negative) 06/23/18 00:46 Chest x-ray: report reviewed (Left lower lobe infiltrate versus atelectasis) CT scan - chest: image reviewed (Left lower lobe infiltrate) Assessment and Plan (1) Chest pain Current Visit: Yes Status: Acute Code(s): R07.9 - CHEST PAIN, UNSPECIFIED SNOMED Code(s): 30446175 (2) Left lower lobe pneumonia Narrative/Plan: 67-year-old male presents to Hospital with the rather sudden onset of chest pain to the left side of his chest associated with increasing shortness of breath. He noticed with deep cough in laying on his left side the pain was considerably worse. Because shortness of breath was improving he sought care in the emergency center. The presentation was evidence of elevated d-dimer, calcium was elevated and there is evidence of abnormal chest x-ray. The patient had evidence of acute renal failure and constantly could not have a CT angiogram but VQ scan was performed within intermediate probability of a pulmonary embolus. Patient has been started on heparin and there was concerns for potential infectious etiology and the consult was requested. The patient is now his standard computed tomography scan of the chest without contrast revealing evidence of the left lower lobe infiltration, which was suggested by the standard chest x-ray. The patient does have leukocytosis but is not having significant fevers or chills but does feel poorly. He presented is having some pleuritic chest pain related to his pneumonia. Antibiotic therapy with Rocephin and azithromycin as requested. For his pleuritic chest pain some low-dose [place] was added to not have anti-inflammatories given his acute renal failure. He is receiving hydration and his renal function shall be monitored. We'll expect with hydration his calcium should also improve. The patient certainly will require follow-up after discharge for resolution of the infiltrate, given the nature and elevated calcium would want to ensure that there is not a residual mass in the area of inflammation. Current Visit: Yes Status: Acute Code(s): J18.1 - LOBAR PNEUMONIA, UNS PECIFIED ORGANISM SNOMED Code(s): 238468299 (3) Pulmonary embolism on left Current Visit: Yes Status: Acute Code(s): I26.99 - OTHER PULMONARY EMBOLISM WITHOUT ACUTE COR PULMONALE SNOMED Code(s): 43947030
[2018-06-23] MEDS: HYDROcodone/APAP 5-325MG 1 EACH TAB PO PRN (21:20)
[2018-06-23] MEDS: ATORVASTATIN 10 MG TAB PO SCH (21:21)
[2018-06-23] MEDS: traZODone HCL 100 MG TAB PO SCH (21:21)
[2018-06-23] MEDS: AZITHROMYCIN 500 MG in SODIUM CHLORIDE 0.9% 250 ML IVPB SCH (22:32)
[2018-06-24] MEDS: HYDROcodone/APAP 5-325MG 1 EACH TAB PO PRN ×4 (03:27→17:49)
[2018-06-24] MEDS: MORPHINE SULFATE 2 MG/ML SYRINGE IVP PRN ×4 (04:37→21:20)
[2018-06-24 07:41] LABS: Albumin 3.6 g/dL (3.5-5.0); Calcium 10.1 mg/dL (8.4-10.2); Total Bilirubin 0.5 mg/dL (0.2-1.3); Total Protein 6.7 g/dL (6.3-8.2)
[2018-06-24] MEDS: ALBUTEROL NEBULIZED 2.5 MG/3 ML INHALATION SCH ×4 (08:23→22:14)
[2018-06-24] MEDS: MONTELUKAST 10 MG TAB PO SCH (08:41)
[2018-06-24] MEDS: ASPIRIN 325 MG TAB PO SCH (08:41)
[2018-06-24] MEDS: FLUTICASONE 50MCG/SPRAY NASAL 16GM EA NOSTRIL SCH ×2 (08:41→21:22)
[2018-06-24] MEDS: PANTOPRAZOLE 40 MG TABLET PO SCH (08:41)
[2018-06-24 08:43] LABS: Basophils % (A) 0 %; Eosinophils # (A) 0.2 k/uL (0-0.7); Eosinophils % (A) 2 %; HGB 12.9 gm/dL (13.0-17.5); Lymphocytes # (A) 2.4 k/uL (1.0-4.8); Lymphocytes % (A) 22 %; MCHC 32.9 g/dL (31.0-37.0); Mean Platelet Volume 8.6; Monocytes % (A) 10 %; Neutrophils # (A) 6.8 k/uL (1.3-7.7); Neutrophils % (A) 64 %; Platelet Count 207 k/uL (150-450); RBC 4.44 m/uL (4.30-5.90); RDW 13.1 % (11.5-15.5); WBC 10.6 k/uL (3.8-10.6)
[2018-06-24] MEDS: SODIUM CHLORIDE 0.9% 1,000 ML IV SCH ×3 (08:51→21:29)
--- NOTE | 2018-06-24 12:45 | P.PN ---
Subjective Progress Note Date: 06/24/18 This is a 67-year-old male, patient of Dr. Brooke. He has a known past medical history of COPD, GERD, hyperlipidemia and possible chronic kidney disease. He is also an ex smoker. Patient presents to the ER with complaints of left-sided chest pain. Pain has been intermittent worse with taking a deep breath. Initially he was admitted to observation and cardiology was consulted. Troponins are negative 2 sets. EKG showing normal sinus rhythm. Patient was found have elevated d-dimer of 1.71. He underwent a VQ scan showing intermediate probability of PE. He was started on IV heparin and pulmonary service was placed on consults. Patient had chest x-ray showing small left pleural effusion left lower lobe atelectasis versus infiltrate. Patient denies cough, fever, chills or sweats. Denies any nausea or vomiting. Denies any bowel movement changes or urinary symptoms. Patient does report where the left- sided chest pain is located behind the left breast he did have swelling and felt a lump in that area with nipple drainage that had started in November. I'm he has had no further drainage since November. He reports still feeling a lump. There is no redness or erythema. Ultrasound of the left breast and consult for infectious disease in place. Creatinine is 2.59. Patient reports the last time he had seen Dr. Brooke his kidneys had come back to normal. Nephrology will be consulted. Patient also had elevated calcium level of 11.5. Repeat calcium of 11.4. Pulmonary has ordered parathyroid hormone level. Patient will be changed to inpatient status. Patient is also receiving IV fluids and PTH level ordered by pulmonary service. 06/24/2018 patient still complaining of left-sided chest pain specimen taking in a deep breath. IV morphine was added yesterday for pain control. Patient had computed tomography scan of the chest completed showing correlate for left lower lobe pneumonia. Patient does report improvement in his cough. Patient was seen by infectious disease they added Rocephin and azithromycin. Possible chest pain could be pleuritic from his cough. White count has normalized from 12-10.6. Venous Doppler was negative for DVT. Patient remains on IV heparin for possible PE. Echo showed EF of 50-55 moderate left ventricle hypertrophy. Calcium level has come down from 11.4-10.1. Parathyroid within normal range at 20.8. Creatinine has decreased from 2.5-2.18. Ultrasound of the breast had shown a solid vascular lesion at the posterior nipple of 1.4 x 0.7 cm in size probably benign. Objective - Vital Signs Vital signs: Vital Signs Temp 97.9 F 06/24/18 12:00 Pulse 88 06/24/18 12:06 Resp 16 06/24/18 12:06 BP 149/76 06/24/18 12:00 Pulse Ox 95 06/24/18 12:00 Intake & Output 06/23/18 06/24/18 06/24/18 18:59 06:59 18:59 Intake Total 872 166.868 240 Balance 872 166.868 240 Intake: Intake, IV Titration 166.868 Amount Heparin Sod,Pork in 0.45% 166.868 NaCl 25,000 unit In 0.45 % NaCl 1 250ml.bag @ 18 UNITS/KG/HR 17.658 mls/hr IV .[id number] [facility] Rx#: [id number] Oral 872 240 Other: Voiding Method Toilet Toilet Toilet # Voids 1 1 1 - Exam Head normocephalic Neck supple Lungs clear to auscultation bilaterally no wheezing or crackles Heart regular rate and rhythm S1-S2, no rub or gallop Abdomen is soft nontender nondistended positive bowel sounds no hepatosplenomegaly Extremities no edema Neuro alert and orientated to 3 - Labs CBC & Chem 7: 06/24/18 06:10 06/24/18 06:10 Labs: Abnormal Lab Results - Last 24 Hours (Table) 06/23/18 06/24/18 06/24/18 Range/Units 19:28 06:10 06:10 Hgb 12.9 L (13.0-17.5) gm/dL APTT 64.4 H (22.0-30.0) sec Chloride 109 H (98-107) mmol/L BUN 24 H (9-20) mg/dL Creatinine 2.18 H (0.66-1.25) mg/dL Glucose 113 H (74-99) mg/dL HDL Cholesterol 36 L (40-60) mg/dL Assessment and Plan Assessment: 1. Acute left-sided pleuritic chest pain: Possibly secondary to pneumonia or PE. With elevated d-dimer and VQ scan showing intermediate probability of PE. Patient has been placed on IV heparin. Pulmonary service has been consulted and appreciate their input. Venous Doppler negative for DVT We are unable to do a CTA of the chest due to elevated creatinine. Pulmonary has started IV fluids a nd if kidney functions normalize may consider CTA of the chest 2. Abnormal creatinine with possible chronic kidney disease. Creatinine 2.59. Consults nephrology. Continue with IV fluid hydration. Baseline creatinine unknown. 3. Hypercalcemia with calcium level of 11.5. Calcium normalized at 10.1. Parathyroid hormone 20.8 4. Hyperlipidemia 5. History of COPD stable 6. Left lower lobe pneumonia: Continue Rocephin and azithromycin. Appreciate infectious disease evaluation 7. GERD 8. Left breast lesion with ultrasound of fresh showing a probably benign solid vascular lesion at the posterior nipple measuring 1.4 x 0.7 cm GI prophylaxis Protonix and DVT prophylaxis IV heparin I performed an examination of the patient and discussed their management with e physician Composition Stone Applicator. I have reviewed the Physician Composition Stone Applicator's notes and agree with the documented findings and plan of care
--- NOTE | 2018-06-24 14:03 | P.PN ---
Subjective Progress Note Date: 06/24/18 Principal diagnosis: Left-sided pleuritic-type chest pain This is a 67-year-old male patient, an ex-smoker who quit smoking. The patient carries at least 65-gril-idtg smoking history. The patient is retired. The patient came into the emergency department yesterday because of an acute left- sided chest pain which is pleuritic in nature. No cough. No sputum production. No fever or chills. No cough pain. No leg swelling. No previous history of DVT or pulmonary embolism. No 72 coronary artery disease. The patient's cardiac enzymes have been negative. D-dimer is at 1.7. The patient had an abnormal renal function with a creatinine of 2.59. The chronicity of this issue is not known. White cell count is not elevated at 11.3. The BNP is not elevated. The patient is currently on IV heparin. The patient was seen by cardiology. Echo was ordered and results are still pending. Meanwhile, a VQ scan was ordered and it was of a intermediate probability with some mismatches noted in the left upper lobe area. The chest x-ray shows limited infiltration of the left lung base along with some diminished breath sounds on examination. Patient is seen today 06/24/2018 in follow-up on the regular medical floor. He is awake and alert in no acute distress. He is resting flat in bed. He is on room air. No worsening shortness of breath, cough or congestion. He still has some left-sided chest discomfort on deep inhalation. Computed tomography scan of the chest revealed some left lower lobe pneumonia. Underlying mass is not completely excluded. Dopplers of the lower extremities were negative for DVT. White count 10.6. Hemoglobin 12.9. Creatinine 2.18. He remains on ceftriaxone and azithromycin along with bronchodilators. Heparin drip continues. Objective - Vital Signs Vital signs: Vital Signs Temp 97.9 F 06/24/18 12:00 Pulse 88 06/24/18 12:06 Resp 16 06/24/18 12:06 BP 149/76 06/24/18 12:00 Pulse Ox 95 06/24/18 12:00 Intake & Output 06/23/18 06/24/18 06/24/18 18:59 06:59 18:59 Intake Total 872 166.868 240 Balance 872 166.868 240 Intake: Intake, IV Titration 166.868 Amount Heparin Sod,Pork in 0.45% 166.868 NaCl 25,000 unit In 0.45 % NaCl 1 250ml.bag @ 18 UNITS/KG/HR 17.658 mls/hr IV .[id number] [facility] Rx#: [id number] Oral 872 240 Other: Voiding Method Toilet Toilet Toilet # Voids 1 1 1 - Exam GENERAL EXAM: Alert, active, comfortable in no apparent distress. HEAD: Normocephalic. EYES: Normal reaction of pupils, equal size. NOSE: Clear with pink turbinates. THROAT: No erythema or exudates. NECK: No masses, no JVD. CHEST: No chest wall deformity. LUNGS: Equal air entry with crackles in the left base. CVS: S1 and S2 normal with no audible murmur, regular rhythm. ABDOMEN: No hepatosplenomegaly, normal bowel sounds, no guarding or rigidity. SPINE: No scoliosis or deformity SKIN: No rashes CENTRAL NERVOUS SYSTEM: No focal deficits, tone is normal in all 4 extremities. EXTREMITIES: There is no peripheral edema. No clubbing, no cyanosis. Peripheral pulses are intact. - Labs CBC & Chem 7: 06/24/18 06:10 06/24/18 06:10 Labs: Abnormal Lab Results - Last 24 Hours (Table) 06/23/18 06/24/18 06/24/18 Range/Units 19:28 06:10 06:10 Hgb 12.9 L (13.0-17.5) gm/dL APTT 64.4 H (22.0-30.0) sec Chloride 109 H (98-107) mmol/L BUN 24 H (9-20) mg/dL Creatinine 2.18 H (0.66-1.25) mg/dL Glucose 113 H (74-99) mg/dL HDL Cholesterol 36 L (40-60) mg/dL Assessment and Plan Assessment: Assessment 1 acute pleuritic left-sided chest pain with a mild elevation of the d-dimer at 1.7 and abnormal VQ scan with a mismatch involving left upper lobe. Consider pulmonary embolism. Currently on IV heparin and pneumonia is also considered he remains on ceftriaxone and azithromycin. 2 Abnormal creatinine, chronic kidney disease and the patient has a normal urinalysis 3 COPD 4 hyperlipidemia 5 history of depression 6 hypercalcemia with a calcium level of 11.5, currently 10.1. Plan The patient was seen and evaluated by Dr. Aldana. CAT scan and labs were rev iewed. Dopplers negative for DVT. Unclear if true pulmonary embolism. Continue heparin drip for now. Repeat a chest x-ray in the a.m. Continue current treatment plan. We will continue to follow and make further recommendations based on his clinical status. I, the cosigning physician, performed a history & physical examination of the patient. Lungs sounds with crackles in the left posterior base.. Maintaining good O2 saturations in the 90s on room air. I discussed the assessment and plan of care with my nurse practitioner, Kirstin Avendano. I attest to the above note as dictated by her.
[2018-06-24] MEDS: HEPARIN SOD,PORK IN 0.45% NACL 25,000 UNIT in 0.45% NACL 1 250ML.BAG IV SCH (14:15)
--- NOTE | 2018-06-24 20:07 | PN ---
PROGRESS NOTE REASON FOR CONSULT: Renal failure. HISTORY OF PRESENT ILLNESS: The patient is a 67-year-old male who was admitted to the hospital with chest pain and shortness of breath. He had a V/Q scan which showed intermediate possibility for PE and currently patient is maintained on IV heparin. A chest CT was done; however, he did not have IV contrast. There is consideration of pneumonia as well and patient is maintained on antibiotics. He states he has had weak kidney function on and off previously. Serum creatinine was 2.59 on admission. Currently patient is on IV fluids and creatinine is down to 2.18. Urine is completely benign. Patient denies any recent use of any nonsteroidal anti-inflammatory agents. Patient also stated that he has had high calcium levels previously. At this time calcium was 10.1. PAST MEDICAL HISTORY: Significant for: 1. Episode of acute kidney injury previously. 2. COPD. 3. Gastroesophageal reflux disease. 4. Hyperlipidemia. SOCIAL HISTORY: Patient is a former smoker. MEDICATIONS: Medications at home prior to admission included: 1. Bentyl. 2. Singulair. 3. Desyrel. 4. Aspirin. 5. Symbicort. ALLERGIES: NONE. REVIEW OF SYSTEMS: As per HPI. Other systems negative. PHYSICAL EXAMINATION: Patient is comfortable, awake, alert, oriented x3, not in any acute distress. Blood pressure was 165/90, heart rate of 80 per minute. Patient is afebrile. EXAMINATION OF THE HEART: S1 and S2. EXAMINATION OF LUNGS: Bilateral breath sounds are heard. ABDOMEN: Soft, non-tender. Examination of lower extremities shows no evidence of edema. CAUSTIC PUMP OPERATOR exam is grossly intact. LABS: Sodium 140, potassium 4.0, chloride 109, BUN 24, serum creatinine 2.18, hemoglobin 12.9, PTH 20.8, calcium 10.1. UA is completely benign. ASSESSMENT: 1. Acute kidney injury; appears to be prerenal. UA is completely benign. I will order an ultrasound of the kidney as well. We do not have any previous labs available for comparison. 2. Possible pulmonary embolism, maintained on IV heparin. 3. Chronic obstructive pulmonary disease. 4. Hyperlipidemia. 5. Hypercalcemia on admission with a calcium of 11.5 with appropriately low PTH at 20.8. An SHIRLEY level will be ordered along with serum and urine immunofixation and 25-hydroxy vitamin D along with 125-hydroxy vitamin D. PLAN: Continue normal saline. Check 25-hydroxy vitamin D and 125-hydroxy vitamin D levels along with serum and urine immunofixation and SHIRLEY level. Check ultrasound of the kidneys. Thank you for this consultation. Will continue to follow the patient with you during his hospitalization. ALYSON / MARIUSZ: [id number] /
[2018-06-24] MEDS: ATORVASTATIN 10 MG TAB PO SCH (21:22)
[2018-06-24] MEDS: traZODone HCL 100 MG TAB PO SCH (21:29)
--- NOTE | 2018-06-24 23:17 | P.PN ---
Subjective Progress Note Date: 06/24/18 67-year-old male who follows in outpatient setting for his difficulty of chronic kidney disease, hyperlipidemia GERD and COPD presented to the emergency center with a 2 day history of discomfort into his left chest. The patient relates that he had the relatively sudden onset of the discomfort to his left chest. He noticed that some physicians were very painful especially laying on his left chest and taking a deep breath and coughing caused more pain. However he was also more short of breath. Because the shortness of breath discomforts continued presented emergency center for evaluation. Because of his chest pain the patient underwent evaluation and there was concerns for underlying pulmonary embolus because of the elevated d-dimer. The patient did have a VQ scan performed within intermediate probability of PE however with his what appears to be acute renal failure CT angiogram is not possible. Computed tomography scan of the chest that was then performed without contrast. The patient has had ultrasound of the chest to evaluate the discomfort to the left nipple area. He relates that he did have a one-time event of some drainage from the left nipple several months ago but has not continued but does seem to have some intermittent discomfort at that site. He has noticed no other masses on the chest wall and no swelling lymph nodes. Due to her shortness of breath he has been seen by audiology nephrology and cardiology. Does not appear to have an acute myocardial event at this time. 06/24/2018 patient is feeling slightly better today. The severe shortness of br eath is starting to improve. Chest wall pain is improving. Fever and chills are improving. Appetite is improving. Multiple consultants are following. Objective - Vital Signs Vital signs: Vital Signs Temp 98.2 F 06/24/18 21:00 Pulse 83 06/24/18 22:29 Resp 18 06/24/18 21:00 BP 160/73 06/24/18 21:00 Pulse Ox 97 06/24/18 21:00 Intake & Output 06/24/18 06/24/18 06/25/18 06:59 18:59 06:59 Intake Total 050.466 8538 Balance 965.562 1011 Intake: Intake, IV Titration 166.868 250 Amount Heparin Sod,Pork in 0.45% 166.868 250 NaCl 25,000 unit In 0.45 % NaCl 1 250ml.bag @ 18 UNITS/KG/HR 17.658 mls/hr IV .[id number] [facility] Rx#: [id number] Oral 1070 Other: Voiding Method Toilet Toilet # Voids 1 2 1 - Exam 67-year-old male who is uncomfortable but not in severe distress. HEENT: Anicteric conjunctiva are pink and moist nasal mucosa grossly intact without significant lesions, there is no thrush. Neck: The neck is supple without significant lymphadenopathy or thyromegaly. Lungs: They're symmetrical bilateral air entry, there are a few crackles at left base and a small area of egophony is noted to the left base. No dullness is noted no changes of tactile fremitus Heart: Regular rate and rhythm with an audible S1-S2 soft S4 2/6 systolic murmur left sternal border There is no significant murmur click or rub, PMI was nondisplaced. Abdomen: Positive bowel sounds soft and nontender without palpable masses or organomegaly. There was no guarding or rebound. Extremities: The upper extremities have excellent pulses they are symmetric, no significant petechiae or telangiectasia. No splinter hemorrhages were noted. The lower extremities are free from significant edema. The peripheral pulses were 2+ and symmetric. Neuro: Awake alert oriented to person place and time. There are no acute new gross focal sensory motor deficits. Chest wall is evaluated there is evidence of no significant lesion or mass to the right nipple. Left nipple has a small area of some slight fullness inferior to the nipple. There is nothing expressible. There was no lymphadenopathy in the left axilla or left supraclavicular node. No other abnormal lymph nodes are noted. The skin is otherwise without any rash - Labs CBC & Chem 7: 06/24/18 06:10 06/24/18 06:10 Labs: Abnormal Lab Results - Last 24 Hours (Table) 06/24/18 06/24/18 Range/Units 06:10 06:10 Hgb 12.9 L (13.0-17.5) gm/dL Chloride 109 H (98-107) mmol/L BUN 24 H (9-20) mg/dL Creatinine 2.18 H (0.66-1.25) mg/dL Glucose 113 H (74-99) mg/dL HDL Cholesterol 36 L (40-60) mg/dL Laboratory Results WBC 10.6 k/uL (3.8-10.6) 06/24/18 06:10 RBC 4.44 m/uL (4.30-5.90) 06/24/18 06:10 Hgb 12.9 gm/dL (13.0-17.5) L 06/24/18 06:10 Hct 39.0 % (39.0-53.0) 06/24/18 06:10 MCV 88.0 fL (80.0-100.0) 06/24/18 06:10 MCH 29.0 pg (25.0-35.0) 06/24/18 06:10 MCHC 32.9 g/dL (31.0-37.0) 06/24/18 06:10 RDW 13.1 % (11.5-15.5) 06/24/18 06:10 Plt Count 207 k/uL (150-450) 06/24/18 06:10 Neutrophils % 64 % 06/24/18 06:10 Lymphocytes % 22 % 06/24/18 06:10 Monocytes % 10 % 06/24/18 06:10 Eosinophils % 2 % 06/24/18 06:10 Basophils % 0 % 06/24/18 06:10 Neutrophils # 6.8 k/uL (1.3-7.7) 06/24/18 06:10 Lymphocytes # 2.4 k/uL (1.0-4.8) 06/24/18 06:10 Monocytes # 1.0 k/uL (0-1.0) 06/24/18 06:10 Eosinophils # 0.2 k/uL (0-0.7) 06/24/18 06:10 Basophils # 0.0 k/uL (0-0.2) 06/24/18 06:10 PT 9.8 sec (9.0-12.0) 06/23/18 11:57 INR 0.9 (<1.2) 06/23/18 11:57 APTT 64.4 sec (22.0-30.0) H 06/23/18 19:28 D-Dimer 1.71 mg/L FEU (<0.60) H 06/22/18 23:20 Sodium 140 mmol/L (137-145) 06/24/18 06:10 Potassium 4.0 mmol/L (3.5-5.1) 06/24/18 06:10 Chloride 109 mmol/L (98-107) H 06/24/18 06:10 Carbon Dioxide 24 mmol/L (22-30) 06/24/18 06:10 Anion Gap 7 mmol/L 06/24/18 06:10 BUN 24 mg/dL (9-20) H 06/24/18 06:10 Creatinine 2.18 mg/dL (0.66-1.25) H 06/24/18 06:10 Est GFR (CKD-EPI)AfAm 35 (>60 ml/min/1.73 sqM) 06/24/18 06:10 Est GFR (CKD-EPI)NonAf 31 (>60 ml/min/1.73 sqM) 06/24/18 06:10 Glucose 113 mg/dL (74-99) H 06/24/18 06:10 Calcium 10.1 mg/dL (8.4-10.2) 06/24/18 06:10 Total Bilirubin 0.5 mg/dL (0.2-1.3) 06/24/18 06:10 AST 18 U/L (17-59) 06/24/18 06:10 ALT 34 U/L (21-72) 06/24/18 06:10 Alkaline Phosphatase 73 U/L (38-126) 06/24/18 06:10 Troponin I <0.012 ng/mL (0.000-0.034) 06/23/18 11:02 NT-Pro-B Natriuret Pep 110 pg/mL 06/22/18 23:20 Total Protein 6.7 g/dL (6.3-8.2) 06/24/18 06:10 Albumin 3.6 g/dL (3.5-5.0) 06/24/18 06:10 Triglycerides 145 mg/dL (<150) 06/24/18 06:10 Cholesterol 156 mg/dL (<200) 06/24/18 06:10 LDL Cholesterol, Calc 91 mg/dL (0-99) 06/24/18 06:10 HDL Cholesterol 36 mg/dL (40-60) L 06/24/18 06:10 PTH Intact 20.8 pg/mL (14.0-72.0) 06/23/18 12:00 Urine Color Light Yellow 06/23/18 00:46 Urine Appearance Clear (Clear) 06/23/18 00:46 Urine pH 7.0 (5.0-8.0) 06/23/18 00:46 Ur Specific [place] 1.012 (1.001-1.035) 06/23/18 00:46 Urine Protein Negative (Negative) 06/23/18 00:46 Urine Glucose (UA) Negative (Negative) 06/23/18 00:46 Urine Ketones Negative (Negative) 06/23/18 00:46 Urine Blood Negative (Negative) 06/23/18 00:46 Urine Nitrite Negative (Negative) 06/23/18 00:46 Urine Bilirubin Negative (Negative) 06/23/18 00:46 Urine Urobilinogen <2.0 mg/dL (<2.0) 06/23/18 00:46 Ur Leukocyte Esterase Negative (Negative) 06/23/18 00:46 Assessment and Plan (1) Chest pain Current Visit: Yes Status: Acute Code(s): R07.9 - CHEST PAIN, UNSPECIFIED SNOMED Code(s): 96905071 (2) Left lower lobe pneumonia Narrative/Plan: 67-year-old male presents to Hospital with the rather sudden onset of chest pain to the left side of his chest associated with increasing shortness of breath. He noticed with deep cough in laying on his left side the pain was considerably worse. Because shortness of breath was improving he sought care in the emergency center. The presentation was evidence of elevated d-dimer, calcium was elevated and there is evidence of abnormal chest x-ray. The patient had evidence of acute renal failure and constantly could not have a CT angiogram but VQ scan was performed within intermediate probability of a pulmonary embolus. Patient has been started on heparin and there was concerns for potential infectious etiology and the consult was requested. The patient is now his standard computed tomography scan of the chest without contrast revealing evidence of the left lower lobe infiltration, which was suggested by the standard chest x-ray. The patient does have leukocytosis but is not having significant fevers or chills but does feel poorly. He presented is having some pleuritic chest pain related to his pneumonia. Antibiotic therapy with Rocephin and azithromycin as requested. For his pleuritic chest pain some low-dose [place] was added to not have anti-inflammatories given his acute renal failure. He is receiving hydration and his renal function shall be monitored. We'll expect with hydration his calcium should also improve. The patient certainly will require follow-up after discharge for resolution of the infiltrate, given the nature and elevated calcium would want to ensure that there is not a residual mass in the area of inflammation. 06/24/2018 patient is feeling better today. He's been seen by pulmonary critical care as well as nephrology and workup is in process. For treatment of underlying pneumonia Rocephin and azithromycin was added and seems to be tolerating that well. We will continue for now. Cultures are process. Renal failure seems to be improving with hydration. His pain is being well managed with the [place] and that we'll continue Current Visit: Yes Status: Acute Code(s): J18.1 - LOBAR PNEUMONIA, UNSPECIFIED ORGANISM SNOMED Code(s): 149626925 (3) Pulmonary embolism on left Current Visit: Yes Status: Acute Code(s): I26.99 - OTHER PULMONARY EMBOLISM WITHOUT ACUTE COR PULMONALE SNOMED Code(s): 41761003
[2018-06-25] MEDS: AZITHROMYCIN 500 MG in SODIUM CHLORIDE 0.9% 250 ML IVPB SCH ×2
[2018-06-25] MEDS: HYDROcodone/APAP 5-325MG 1 EACH TAB PO PRN ×5 (01:51→21:59)
[2018-06-25] MEDS: SODIUM CHLORIDE 0.9% 1,000 ML IV SCH ×3 (04:35→17:13)
[2018-06-25] MEDS: HEPARIN SOD,PORK IN 0.45% NACL 25,000 UNIT in 0.45% NACL 1 250ML.BAG IV SCH ×2 (04:58→21:56)
[2018-06-25] MEDS: ALBUTEROL NEBULIZED 2.5 MG/3 ML INHALATION SCH ×5 (06:58→19:56)
[2018-06-25] MEDS: ASPIRIN 325 MG TAB PO SCH (07:47)
[2018-06-25] MEDS: PANTOPRAZOLE 40 MG TABLET PO SCH (07:47)
[2018-06-25] MEDS: MONTELUKAST 10 MG TAB PO SCH (07:47)
[2018-06-25] MEDS: FLUTICASONE 50MCG/SPRAY NASAL 16GM EA NOSTRIL SCH ×2 (07:47→21:55)
--- NOTE | 2018-06-25 08:23 | US ---
EXAMINATION TYPE: US kidneys/renal and bladder DATE OF EXAM: 06/25/2018 COMPARISON: US 2013 CLINICAL HISTORY: rf. Renal failure EXAM MEASUREMENTS: Right Kidney: 11.5 x 6.7 x 5.4 cm Left Kidney: 11.2 x 5.9 x 5.7 cm Right Kidney: Lobulated contour when compared to previous, probable prominent column of Ter[place] . Mild cortical renal thinning. Left Kidney: Lobulated contour when compared to previous. Mild cortical renal thinning. Bladder: wnl Bilateral Jets seen: No There is no evidence for hydronephrosis at this point in time. No nephrolithiasis is seen. No vince s are identified. The urinary bladder is anechoic. Bilateral ureteral jets are seen. IMPRESSION: Sonographic findings of medical renal disease, overall mild. No hydronephrosis or nephrolithiasis.
[2018-06-25 09:46] LABS: Basophils # (A) 0.1 k/uL (0-0.2); Basophils % (A) 1 %; Eosinophils # (A) 0.4 k/uL (0-0.7); Eosinophils % (A) 5 %; HCT 35.5 % (39.0-53.0); HGB 11.6 gm/dL (13.0-17.5); Lymphocytes # (A) 1.5 k/uL (1.0-4.8); Lymphocytes % (A) 19 %; MCH 28.6 pg (25.0-35.0); MCHC 32.6 g/dL (31.0-37.0); MCV 87.7 fL (80.0-100.0); Mean Platelet Volume 7.6; Monocytes # (A) 0.9 k/uL (0-1.0); Monocytes % (A) 10 %; Neutrophils # (A) 5.3 k/uL (1.3-7.7); Neutrophils % (A) 64 %; Platelet Count 219 k/uL (150-450); RBC 4.05 m/uL (4.30-5.90); RDW 12.9 % (11.5-15.5); WBC 8.3 k/uL (3.8-10.6)
[2018-06-25 10:39] LABS: Albumin 3.1 g/dL (3.5-5.0); Calcium 9.2 mg/dL (8.4-10.2); Total Bilirubin 0.4 mg/dL (0.2-1.3); Total Protein 5.9 g/dL (6.3-8.2)
--- NOTE | 2018-06-25 11:30 | P.PN ---
Subjective Progress Note Date: 06/25/18 This is a 67-year-old male, patient of Dr. Brooke. He has a known past medical history of COPD, GERD, hyperlipidemia and possible chronic kidney disease. He is also an ex smoker. Patient presents to the ER with complaints of left-sided chest pain. Pain has been intermittent worse with taking a deep breath. Initially he was admitted to observation and cardiology was consulted. Troponins are negative 2 sets. EKG showing normal sinus rhythm. Patient was found have elevated d-dimer of 1.71. He underwent a VQ scan showing intermediate probability of PE. He was started on IV heparin and pulmonary service was placed on consults. Patient had chest x-ray showing small left pleural effusion left lower lobe atelectasis versus infiltrate. Patient denies cough, fever, chills or sweats. Denies any nausea or vomiting. Denies any bowel movement changes or urinary symptoms. Patient does report where the left- sided chest pain is located behind the left breast he did have swelling and felt a lump in that area with nipple drainage that had started in November. I'm he has had no further drainage since November. He reports still feeling a lump. There is no redness or erythema. Ultrasound of the left breast and consult for infectious disease in place. Creatinine is 2.59. Patient reports the last time he had seen Dr. Brooke his kidneys had come back to normal. Nephrology will be consulted. Patient also had elevated calcium level of 11.5. Repeat calcium of 11.4. Pulmonary has ordered parathyroid hormone level. Patient will be changed to inpatient status. Patient is also receiving IV fluids and PTH level ordered by pulmonary service. 06/24/2018 patient still complaining of left-sided chest pain specimen taking in a deep breath. IV morphine was added yesterday for pain control. Patient had computed tomography scan of the chest completed showing correlate for left lower lobe pneumonia. Patient does report improvement in his cough. Patient was seen by infectious disease they added Rocephin and azithromycin. Possible chest pain could be pleuritic from his cough. White count has normalized from 12-10.6. Venous Doppler was negative for DVT. Patient remains on IV heparin for possible PE. Echo showed EF of 50-55 moderate left ventricle hypertrophy. Calcium level has come down from 11.4-10.1. Parathyroid within normal range at 20.8. Creatinine has decreased from 2.5-2.18. Ultrasound of the breast had shown a solid vascular lesion at the posterior nipple of 1.4 x 0.7 cm in size probably benign. On 06/25/2018 patient remains on heparin drip for possible PE. At this time patient is resting comfortably in bed. Patient is still complaining of inte rmittent left chest pain. Patient remains on IV azithromycin and Rocephin. Creatinine remains elevated at 2.18 and bun 24. At this time patient denies nausea vomiting or diarrhea. Patient denies any urinary burning or frequency Objective - Vital Signs Vital signs: Vital Signs Temp 97.9 F 06/25/18 05:00 Pulse 55 L 06/25/18 05:00 Resp 18 06/25/18 05:00 BP 173/92 06/25/18 05:00 Pulse Ox 98 06/25/18 05:00 Intake & Output 06/24/18 06/25/18 06/25/18 18:59 06:59 18:59 Intake Total 1320 250.00 Balance 1320 250.00 Intake: Intake, IV Titration 250 250.00 Amount Heparin Sod,Pork in 0.45% 250 250.00 NaCl 25,000 unit In 0.45 % NaCl 1 250ml.bag @ 18 UNITS/KG/HR 17.658 mls/hr IV .[id number] [facility] Rx#: [id number] Oral 1070 Other: Voiding Method Toilet Toilet Toilet # Voids 2 2 - Exam Head normocephalic Neck supple Lungs clear to auscultation bilaterally no wheezing or crackles Heart regular rate and rhythm S1-S2, no rub or gallop Abdomen is soft nontender nondistended positive bowel sounds no hepatosplenomegaly Extremities no edema Neuro alert and orientated to 3 - Labs CBC & Chem 7: 06/25/18 08:30 06/25/18 08:30 Labs: Abnormal Lab Results - Last 24 Hours (Table) 06/25/18 06/25/18 06/25/18 Range/Units 08:30 08:30 08:34 RBC 4.05 L (4.30-5.90) m/uL Hgb 11.6 L (13.0-17.5) gm/dL Hct 35.5 L (39.0-53.0) % APTT 62.9 H (22.0-30.0) sec Chloride 111 H (98-107) mmol/L Creatinine 1.88 H (0.66-1.25) mg/dL Total Protein 5.9 L (6.3-8.2) g/dL Albumin 3.1 L (3.5-5.0) g/dL Assessment and Plan Assessment: 1. Acute left-sided pleuritic chest pain: Possibly secondary to pneumonia or PE. With elevated d-dimer and VQ scan showing intermediate probability of PE. Patient has been placed on IV heparin. Pulmonary service has been consulted and appreciate their input. Venous Doppler negative for DVT We are unable to do a CTA of the chest due to elevated creatinine. Pulmonary has started IV fluids and if kidney functions normalize may consider CTA of the chest 2. Abnormal creatinine with possible chronic kidney disease. Creatinine 2.59. Consults nephrology. Continue with IV fluid hydration. Ultrasound of abdomen sonographic findings of medical renal disease, overall mild. No hydronephrosis or nephrolithiasis. Creatinine is improving to 2.18 and bun 24. 3. Hypercalcemia with calcium level of 11.5. Calcium normalized at 10.1. Parathyroid hormone 20.8 4. Hyperlipidemia 5. History of COPD stable 6. Left lower lobe pneumonia: Continue Rocephin and azithromycin. Appreciate infectious disease evaluation 7. GERD 8. Left breast lesion with ultrasound of fresh showing a probably benign solid vascular lesion at the posterior nipple measuring 1.4 x 0.7 cm GI prophylaxis Protonix and DVT prophylaxis IV heparin I performed an examination of the patient and discussed their management with the Nurse Practitioner. I have reviewed the Nurse Practitioner's notes and agree with the documented findings and plan of care
--- NOTE | 2018-06-25 14:07 | XR ---
EXAMINATION TYPE: XR chest 2V DATE OF EXAM: 06/25/2018 COMPARISON: Chest x-ray 3 days ago. CTA chest 2 days ago. HISTORY: Pleurisy per order. TECHNIQUE: Frontal and lateral views of the chest are obtained. FINDINGS: There is persistent left basilar opacity. Right lung remains clear. The cardiac silhouett e size remains within normal limits. The osseous structures are intact. IMPRESSION: Persistent left basilar acute infiltrate and/or atelectasis felt fairly stable with susp ected new small to tiny left pleural effusion. No new infiltrate is seen.
--- NOTE | 2018-06-25 14:10 | P.PN ---
Subjective Progress Note Date: 06/25/18 Principal diagnosis: Left-sided pleuritic-type chest pain, rule out underlying pulmonary embolism This is a 67-year-old male patient, an ex-smoker who quit smoking. The patient carries at least [id number] smoking history. The patient is retired. The patient came into the emergency department yesterday because of an acute left- sided chest pain which is pleuritic in nature. No cough. No sputum production. No fever or chills. No cough pain. No leg swelling. No previous history of DVT or pulmonary embolism. No 72 coronary artery disease. The patient's cardiac enzymes have been negative. D-dimer is at 1.7. The patient had an abnormal renal function with a creatinine of 2.59. The chronicity of this issue is not known. White cell count is not elevated at 11.3. The BNP is not elevated. The patient is currently on IV heparin. The patient was seen by cardiology. Echo was ordered and results are still pending. Meanwhile, a VQ scan was ordered and it was of a intermediate probability with some mismatches noted in the left upper lobe area. The chest x-ray shows limited infiltration of the left lung base along with some diminished breath sounds on examination. Patient is seen today 06/24/2018 in follow-up on the regular medical floor. He is awake and alert in no acute distress. He is resting flat in bed. He is on room air. No worsening shortness of breath, cough or congestion. He still has some left-sided chest discomfort on deep inhalation. Computed tomography scan of the chest revealed some left lower lobe pneumonia. Underlying mass is not completely excluded. Dopplers of the lower extremities were negative for DVT. White count 10.6. Hemoglobin 12.9. Creatinine 2.18. He remains on ceftriaxone and azithromycin along with bronchodilators. Heparin drip continues. On 06/25/2018 patient is seen in follow-up on medical surgical floor. He still has persistent left chest discomfort which is exacerbated by deep breaths. CT chest was obtained and showed left lower lobe pneumonia, patient was started on antibiotics, currently on a combination of Rocephin and Zithromax. He is receiving oral pain medications he continues on IV heparin for a possibility of underlying pulmonary embolism. These labs were reviewed, and showed no evidence of leukocytosis, with blood cell count of 8.3, hemoglobin is 11.6, patient's renal profile is improving, with BUN down to 19 and creatinine is 1.88, electrolytes are unremarkable. LFTs are within normal limits. Ultrasound of the kidney showed no hydronephrosis or nephrolithiasis. Objective - Vital Signs Vital signs: Vital Signs Temp 97.9 F 06/25/18 11:48 Pulse 83 06/25/18 11:48 Resp 18 06/25/18 11:48 BP 170/92 06/25/18 11:48 Pulse Ox 95 06/25/18 11:48 Intake & Output 06/24/18 06/25/18 06/25/18 18:59 06:59 18:59 Intake Total 1320 250.00 600 Balance 1320 250.00 600 Intake: Intake, IV Titration 250 250.00 Amount Heparin Sod,Pork in 0.45% 250 250.00 NaCl 25,000 unit In 0.45 % NaCl 1 250ml.bag @ 18 UNITS/KG/HR 17.658 mls/hr IV .[id number] [facility] Rx#: [id number] Oral 1070 600 Other: Voiding Method Toilet Toilet Toilet # Voids 2 2 3 - Exam GENERAL EXAM: Alert, pleasant, 67-year-old white male, comfortable in no apparent distress. HEAD: Normocephalic/atraumatic. EYES: Normal reaction of pupils, equal size. Conjunctiva pink, sclera white. NOSE: Clear with pink turbinates. THROAT: No erythema or exudates. NECK: No masses, no JVD, no thyroid enlargement, no adenopathy. CHEST: No chest wall deformity. Symmetrical expansion. LUNGS: Equal air entry with no crackles, no wheezes, diminished breath sounds at the bases CVS: Regular rate and rhythm, normal S1 and S2, no gallops, no murmurs, no rubs ABDOMEN: Soft, nontender. No hepatosplenomegaly, normal bowel sounds, no guarding or rigidity. EXTREMITIES: No clubbing, no edema, no cyanosis, 2+ pulses and upper and lower extremities. MUSCULOSKELETAL: Muscle strength and tone normal. SPINE: No scoliosis or deformity SKIN: No rashes CENTRAL NERVOUS SYSTEM: Alert and oriented -3. No focal deficits, tone is nor mal in all 4 extremities. PSYCHIATRIC: Alert and oriented -3. Appropriate affect. Intact judgment and insight. - Labs CBC & Chem 7: 06/25/18 08:30 06/25/18 08:30 Labs: Abnormal Lab Results - Last 24 Hours (Table) 06/25/18 06/25/18 06/25/18 Range/Units 08:30 08:30 08:34 RBC 4.05 L (4.30-5.90) m/uL Hgb 11.6 L (13.0-17.5) gm/dL Hct 35.5 L (39.0-53.0) % APTT 62.9 H (22.0-30.0) sec Chloride 111 H (98-107) mmol/L Creatinine 1.88 H (0.66-1.25) mg/dL Total Protein 5.9 L (6.3-8.2) g/dL Albumin 3.1 L (3.5-5.0) g/dL Assessment and Plan Plan: Assessment: 1 acute pleuritic left-sided chest pain with a mild elevation of the d-dimer at 1.7 and abnormal VQ scan with a mismatch involving left upper lobe. Consider pulmonary embolism. Currently on IV heparin and pneumonia is also considered he remains on ceftriaxone and azithromycin. 2 Abnormal creatinine, chronic kidney disease and the patient has a normal urinalysis, improving. Ultrasound of the kidneys did not show any evidence of hydronephrosis or nephrolithiasis 3 COPD 4 hyperlipidemia 5 history of depression 6 hypercalcemia with a calcium level of 11.5, currently 10.1. Plan: We'll continue with current plan of treatment, will repeat a chest x-ray today, is having persistent left pleuritic chest pain despite the antibiotics. Will continue the heparin drip for now, we will try to obtain a CT angios chest tomorrow to rule out pulmonary embolism if the renal profile normalizes. Encourage patient to sit up in the chair, deep breathing cough, there has been no fever or chills. I performed a history & physical examination of the patient and discussed their management with my nurse practitioner, Sarita Pineda. I reviewed the nurse practitioner's note and agree with the documented findings and plan of care. Lung sounds are positive for diminished breath sounds at the. The findings and the impression was discussed with the patient. I attest to the documentation by the nurse practitioner. Time with Patient: Less than 30
[2018-06-25 17:49] LABS: Vitamin D 25 Hydroxy 26.2 ng/mL (30.0-100.0)
[2018-06-25] MEDS: ATORVASTATIN 10 MG TAB PO SCH (21:57)
[2018-06-25] MEDS: AZITHROMYCIN 500 MG TAB PO SCH (21:59)
[2018-06-25] MEDS: traZODone HCL 100 MG TAB PO SCH (22:01)
--- NOTE | 2018-06-25 22:12 | PN ---
PROGRESS NOTE Patient is seen for followup for acute kidney injury and hypercalcemia. His renal function has improved, with creatinine down from 2.59 to 1.8 now. Patient is maintained on IV fluids. His calcium is also down to 9.2. It was elevated at 11.5 on initial admission. PTH is not elevated and 25-hydroxy vitamin D is not high; 125- hydroxy vitamin D is pending. Serum and urine immunofixation is also pending. On examination, blood pressure this morning was 170/92, heart rate 82 per minute. Patient is afebrile. EXAMINATION OF THE HEART: S1 and S2. EXAMINATION OF LUNGS: Bilateral breath sounds are heard. ABDOMEN: Soft, non-tender. Examination of lower extremities shows no evidence of edema. 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 Labs show sodium 141, potassium 4.0, BUN 19, serum creatinine 1.8. Calcium is down to 9.2. Hemoglobin 11.6 g/dL. ASSESSMENT: 1. Acute kidney injury associated with volume depletion, currently improving. 2. Hypercalcemia, now improved with normal saline. The PTH is appropriately low. Urine immunofixation is pending. This could be associated with volume depletion as well. We need to follow up on the SHIRLEY level as well. The 125-hydroxy vitamin D level is also pending. Patient is advised to avoid any calcium supplementation post discharge. We also need to avoid thiazide diuretics down the road. 3. Pleuritic chest pain with intermediate possibility for pulmonary embolism, maintained on anticoagulation. 4. History of chronic obstructive pulmonary disease. 5. Hyperlipidemia. PLAN: Continue IV fluids. Follow up on 125-hydroxy vitamin D, SHIRLEY level and urine immunofixation. MMODL / IJN: [id number] /
[2018-06-26] MEDS: SODIUM CHLORIDE 0.9% 1,000 ML IV SCH ×4 (04:37→20:31)
[2018-06-26 07:52] LABS: Basophils % (A) 1 %; Eosinophils # (A) 0.4 k/uL (0-0.7); Eosinophils % (A) 6 %; HCT 34.1 % (39.0-53.0); HGB 10.9 gm/dL (13.0-17.5); Lymphocytes # (A) 1.7 k/uL (1.0-4.8); Lymphocytes % (A) 21 %; MCH 28.9 pg (25.0-35.0); MCHC 31.9 g/dL (31.0-37.0); MCV 90.8 fL (80.0-100.0); Mean Platelet Volume 7.4; Monocytes # (A) 0.8 k/uL (0-1.0); Monocytes % (A) 10 %; Neutrophils # (A) 4.7 k/uL (1.3-7.7); Neutrophils % (A) 61 %; Platelet Count 226 k/uL (150-450); RBC 3.75 m/uL (4.30-5.90); RDW 12.9 % (11.5-15.5); WBC 7.7 k/uL (3.8-10.6)
[2018-06-26] MEDS: MORPHINE SULFATE 2 MG/ML SYRINGE IVP PRN (08:48)
[2018-06-26 08:58] LABS: Potassium 3.6 mmol/L (3.5-5.1); Total Bilirubin 0.4 mg/dL (0.2-1.3); Total Protein 5.7 g/dL (6.3-8.2)
[2018-06-26] MEDS: PANTOPRAZOLE 40 MG TABLET PO SCH (09:02)
[2018-06-26] MEDS: MONTELUKAST 10 MG TAB PO SCH (09:02)
[2018-06-26] MEDS: ASPIRIN 325 MG TAB PO SCH (09:02)
[2018-06-26] MEDS: ALBUTEROL NEBULIZED 2.5 MG/3 ML INHALATION SCH ×4 (09:21→19:44)
[2018-06-26] MEDS: FLUTICASONE 50MCG/SPRAY NASAL 16GM EA NOSTRIL SCH ×2 (10:35→20:30)
[2018-06-26] MEDS ORDERED: LACTULOSE 20 GM/30 ML CUP PO ONE (12:03)
--- NOTE | 2018-06-26 12:18 | P.PN ---
Subjective Progress Note Date: 06/26/18 This is a 67-year-old male, patient of Dr. Brooke. He has a known past medical history of COPD, GERD, hyperlipidemia and possible chronic kidney disease. He is also an ex smoker. Patient presents to the ER with complaints of left-sided chest pain. Pain has been intermittent worse with taking a deep breath. Initially he was admitted to observation and cardiology was consulted. Troponins are negative 2 sets. EKG showing normal sinus rhythm. Patient was found have elevated d-dimer of 1.71. He underwent a VQ scan showing intermediate probability of PE. He was started on IV heparin and pulmonary service was placed on consults. Patient had chest x-ray showing small left pleural effusion left lower lobe atelectasis versus infiltrate. Patient denies cough, fever, chills or sweats. Denies any nausea or vomiting. Denies any bowel movement changes or urinary symptoms. Patient does report where the left- sided chest pain is located behind the left breast he did have swelling and felt a lump in that area with nipple drainage that had started in November. I'm he has had no further drainage since November. He reports still feeling a lump. There is no redness or erythema. Ultrasound of the left breast and consult for infectious disease in place. Creatinine is 2.59. Patient reports the last time he had seen Dr. Brooke his kidneys had come back to normal. Nephrology will be consulted. Patient also had elevated calcium level of 11.5. Repeat calcium of 11.4. Pulmonary has ordered parathyroid hormone level. Patient will be changed to inpatient status. Patient is also receiving IV fluids and PTH level ordered by pulmonary service. 06/24/2018 patient still complaining of left-sided chest pain specimen taking in a deep breath. IV morphine was added yesterday for pain control. Patient had computed tomography scan of the chest completed showing correlate for left lower lobe pneumonia. Patient does report improvement in his cough. Patient was seen by infectious disease they added Rocephin and azithromycin. Possible chest pain could be pleuritic from his cough. White count has normalized from 12-10.6. Venous Doppler was negative for DVT. Patient remains on IV heparin for possible PE. Echo showed EF of 50-55 moderate left ventricle hypertrophy. Calcium level has come down from 11.4-10.1. Parathyroid within normal range at 20.8. Creatinine has decreased from 2.5-2.18. Ultrasound of the breast had shown a solid vascular lesion at the posterior nipple of 1.4 x 0.7 cm in size probably benign. On 06/25/2018 patient remains on heparin drip for possible PE. At this time patient is resting comfortably in bed. Patient is still complaining of inter mittent left chest pain. Patient remains on IV azithromycin and Rocephin. Creatinine remains elevated at 2.18 and bun 24. At this time patient denies nausea vomiting or diarrhea. Patient denies any urinary burning or frequency 06/26/2018 patient is still complaining of left-sided chest pain. He does report it's a little worse today. There is no rash evident. He has been up and ambulating without chest pain or shortness of breath. Again the chest discomfort is when he takes in a deep breath. Creatinine has come down from 1.88 to 1.83 will await further instruction for CTA her pulmonary service. Patient does have a low vitamin D level of 26.2. He will be started on vitamin D supplement. Patient also complaining of constipation. And eyes any abdominal pain or nausea or vomiting. Objective - Vital Signs Vital signs: Vital Signs Temp 98.3 F 06/26/18 05:00 Pulse 84 06/26/18 09:41 Resp 18 06/26/18 05:00 BP 126/63 06/26/18 05:00 Pulse Ox 97 06/26/18 05:00 Intake & Output 06/25/18 06/26/18 06/26/18 18:59 06:59 18:59 Intake Total 600 250 188.058 Balance 600 250 188.058 Intake: Intake, IV Titration 250 188.058 Amount Heparin Sod,Pork in 0.45% 250 188.058 NaCl 25,000 unit In 0.45 % NaCl 1 250ml.bag @ 18 UNITS/KG/HR 17.658 mls/hr IV .[id number] [facility] Rx#: [id number] Oral 600 Other: Voiding Method Toilet Toilet Toilet # Voids 3 1 - Exam Head normocephalic Neck supple Lungs clear to auscultation bilaterally no wheezing or crackles Heart regular rate and rhythm S1-S2, no rub or gallop Abdomen is soft nontender nondistended positive bowel sounds no hepatosplenomegaly Extremities no edema Neuro alert and orientated to 3 - Labs CBC & Chem 7: 06/26/18 07:19 06/26/18 07:19 Labs: Abnormal Lab Results - Last 24 Hours (Table) 06/25/18 06/26/18 06/26/18 Range/Units 08:30 07:19 07:19 RBC 3.75 L (4.30-5.90) m/uL Hgb 10.9 L (13.0-17.5) gm/dL Hct 34.1 L (39.0-53.0) % APTT (22.0-30.0) sec Chloride 114 H (98-107) mmol/L Creatinine 1.83 H (0.66-1.25) mg/dL Total Protein 5.7 L (6.3-8.2) g/dL Albumin 3.0 L (3.5-5.0) g/dL Vitamin D 25-Hydroxy 26.2 L (30.0-100.0) ng/mL 06/26/18 Range/Units 07:19 RBC (4.30-5.90) m/uL Hgb (13.0-17.5) gm/dL Hct (39.0-53.0) % APTT 88.2 H (22.0-30.0) sec Chloride (98-107) mmol/L Creatinine (0.66-1.25) mg/dL Total Protein (6.3-8.2) g/dL Albumin (3.5-5.0) g/dL Vitamin D 25-Hydroxy (30.0-100.0) ng/mL Assessment and Plan Assessment: 1. Acute left-sided pleuritic chest pain: Possibly secondary to pneumonia or PE. With elevated d-dimer and VQ scan showing intermediate probability of PE. Patient has been placed on IV heparin. Pulmonary service has been consulted and appreciate their input. Venous Doppler negative for DVT We are unable to do a CTA of the chest due to elevated creatinine. Pulmonary has started IV fluids and if kidney functions normalize may consider CTA of the chest. Await further recommendations from pulmonary service regarding CTA of chest 2. Abnormal creatinine with possible chronic kidney disease. Creatinine is now 1.83. Nephrology is following. Continue with IV fluids 3. Hypercalcemia with calcium level of 11.5. Calcium normalized at 10.1. Parathyroid hormone 20.8 nephrology is ordered vitamin D level. Vitamin D is not elevated but low at 26.2. Awaiting vitamin D hydroxy 125, SHIRLEY level and urine immunofixation. Nephrology following 4. Hyperlipidemia 5. History of COPD stable 6. Left lower lobe pneumonia: Continue Rocephin and azithromycin. Appreciate infectious disease evaluation 7. GERD 8. Left breast lesion with ultrasound showing a probably benign solid vascular lesion at the posterior nipple measuring 1.4 x 0.7 cm GI prophylaxis Protonix and DVT prophylaxis IV heparin I performed an examination of the patient and discussed their management with the physician Ornamental Ironworking Supervisor. I have reviewed the Physician Ornamental Ironworking Supervisor's notes and agree with the documented findings and plan of care
[2018-06-26] MEDS: DOCUSATE 100 MG CAP PO SCH ×2 (12:52→20:30)
[2018-06-26] MEDS: HEPARIN SOD,PORK IN 0.45% NACL 25,000 UNIT in 0.45% NACL 1 250ML.BAG IV SCH (12:52)
--- NOTE | 2018-06-26 14:41 | P.PN ---
Subjective Progress Note Date: 06/26/18 Principal diagnosis: Left-sided pleuritic-type chest pain, rule out underlying pulmonary embolism This is a 67-year-old male patient, an ex-smoker who quit smoking. The patient carries at least 14-ricb-fgxt smoking history. The patient is retired. The patient came into the emergency department yesterday because of an acute left- sided chest pain which is pleuritic in nature. No cough. No sputum production. No fever or chills. No cough pain. No leg swelling. No previous history of DVT or pulmonary embolism. No 70 coronary artery disease. The patient's cardiac enzymes have been negative. D-dimer is at 1.7. The patient had an abnormal renal function with a creatinine of 2.59. The chronicity of this issue is not known. White cell count is not elevated at 11.3. The BNP is not elevated. The patient is currently on IV heparin. The patient was seen by cardiology. Echo was ordered and results are still pending. Meanwhile, a VQ scan was ordered and it was of a intermediate probability with some mismatches noted in the left upper lobe area. The chest x-ray shows limited infiltration of the left lung base along with some diminished breath sounds on examination. Patient is seen today 06/24/2018 in follow-up on the regular medical floor. He is awake and alert in no acute distress. He is resting flat in bed. He is on room air. No worsening shortness of breath, cough or congestion. He still has some left-sided chest discomfort on deep inhalation. Computed tomography scan of the chest revealed some left lower lobe pneumonia. Underlying mass is not completely excluded. Dopplers of the lower extremities were negative for DVT. White count 10.6. Hemoglobin 12.9. Creatinine 2.18. He remains on ceftriaxone and azithromycin along with bronchodilators. Heparin drip continues. On 06/25/2018 patient is seen in follow-up on medical surgical floor. He still has persistent left chest discomfort which is exacerbated by deep breaths. CT chest was obtained and showed left lower lobe pneumonia, patient was started on antibiotics, currently on a combination of Rocephin and Zithromax. He is receiving oral pain medications he continues on IV heparin for a possibility of underlying pulmonary embolism. These labs were reviewed, and showed no evidence of leukocytosis, with blood cell count of 8.3, hemoglobin is 11.6, patient's renal profile is improving, with BUN down to 19 and creatinine is 1.88, electrolytes are unremarkable. LFTs are within normal limits. Ultrasound of the kidney showed no hydronephrosis or nephrolithiasis. On 06/26/2017 patient seen in follow-up on medical surgical floor. In no acute distress, still has left-sided chest discomfort exacerbated by deep inspiration. I'll signs are stable, no fever or chills. No acute events overnight, he remains on heparin drip IV hydration, today's labs have been reviewed, and his renal profile is stable, it is improved, but not back to normal, B1 is 18, creatinine is 1.83. Patient is on antibiotics for possibility of left lower lobe pneumonia, lung sounds reveal courses motoric crackles over left lower base, clear on the right. Vitals are stable, he is on room air, with pulse ox of 98%, no fever or chills. Objective - Vital Signs Vital signs: Vital Signs Temp 98.7 F 06/26/18 11:52 Pulse 84 06/26/18 13:14 Resp 18 06/26/18 11:52 BP 150/73 06/26/18 11:52 Pulse Ox 96 06/26/18 11:52 Intake & Output 06/25/18 06/26/18 06/26/18 18:59 06:59 18:59 Intake Total 257 510 1614.000 Balance 306 405 5008.000 Intake: Intake, IV Titration 250 1500.000 Amount Heparin Sod,Pork in 0.45% 250 250.000 NaCl 25,000 unit In 0.45 % NaCl 1 250ml.bag @ 18 UNITS/KG/HR 17.658 mls/hr IV .[id number] [facility] Rx#: [id number] Sodium Chloride 0.9% 1, 1200 000 ml @ 150 mls/hr IV . Q6H40M [facility] Rx#:[id number] cefTRIAXone 1 gm In 50 Sodium Chloride 0.9% 50 ml @ 100 mls/hr IVPB Q24H [facility] Rx#:[id number] Oral 600 Other: Voiding Method Toilet Toilet Toilet # Voids 3 1 - Exam GENERAL EXAM: Alert, pleasant, 67-year-old white male, comfortable in no apparent distress. HEAD: Normocephalic/atraumatic. EYES: Normal reaction of pupils, equal size. Conjunctiva pink, sclera white. NOSE: Clear with pink turbinates. THROAT: No erythema or exudates. NECK: No masses, no JVD, no thyroid enlargement, no adenopathy. CHEST: No chest wall deformity. Symmetrical expansion. LUNGS: Equal air entry with no crackles over left lower lobe, no wheezes, diminished breath sounds at the bases CVS: Regular rate and rhythm, normal S1 and S2, no gallops, no murmurs, no rubs ABDOMEN: Soft, nontender. No hepatosplenomegaly, normal bowel sounds, no guarding or rigidity. EXTREMITIES: No clubbing, no edema, no cyanosis, 2+ pulses and upper and lower extremities. MUSCULOSKELETAL: Muscle strength and tone normal. SPINE: No scoliosis or deformity SKIN: No rashes CENTRAL NERVOUS SYSTEM: Alert and oriented -3. No focal deficits, tone is normal in all 4 extremities. PSYCHIATRIC: Alert and oriented -3. Appropriate affect. Intact judgment and insight. - Labs CBC & Chem 7: 06/26/18 07:19 06/26/18 07:19 Labs: Abnormal Lab Results - Last 24 Hours (Table) 06/25/18 06/26/18 06/26/18 Range/Units 08:30 07:19 07:19 RBC 3.75 L (4.30-5.90) m/uL Hgb 10.9 L (13.0-17.5) gm/dL Hct 34.1 L (39.0-53.0) % APTT (22.0-30.0) sec Chloride 114 H (98-107) mmol/L Creatinine 1.83 H (0.66-1.25) mg/dL Total Protein 5.7 L (6.3-8.2) g/dL Albumin 3.0 L (3.5-5.0) g/dL Vitamin D 25-Hydroxy 26.2 L (30.0-100.0) ng/mL 06/26/18 Range/Units 07:19 RBC (4.30-5.90) m/uL Hgb (13.0-17.5) gm/dL Hct (39.0-53.0) % APTT 88.2 H (22.0-30.0) sec Chloride (98-107) mmol/L Creatinine (0.66-1.25) mg/dL Total Protein (6.3-8.2) g/dL Albumin (3.5-5.0) g/dL Vitamin D 25-Hydroxy (30.0-100.0) ng/mL Assessment and Plan Plan: Assessment: 1 acute pleuritic left-sided chest pain with a mild elevation of the d-dimer at 1.7 and abnormal VQ scan with a mismatch involving left upper lobe. Consider pulmonary embolism. Currently on IV heparin and pneumonia is also considered he remains on ceftriaxone and azithromycin. 2 Abnormal creatinine, chronic kidney disease and the patient has a normal urinalysis, improving. Ultrasound of the kidneys did not show any evidence of hydronephrosis or nephrolithiasis 3 COPD 4 hyperlipidemia 5 history of depression 6 hypercalcemia with a calcium level of 11.5, currently 10.1. Plan: We'll continue with current medical treatment, continue with antibiotics for possibility of left lower lobe pneumonia. Clinically patient is stable, still has a persistence of left-sided pleuritic chest pain, no fever or chills, no hemoptysis. Creatinine is 1.83, still cannot have the CT angios of the chest. Will check with city planner regarding coverage for Eliquis and if the patient is covered we'll start the Eliquis, will treat with 3 months of anticoagulation. I performed a history & physical examination of the patient and discussed their management with my nurse practitioner, Sarita Pineda. I reviewed the nurse practitioner's note and agree with the documented findings and plan of care. Lung sounds are positive for diminished breath sounds at the. The findings and the impression was discussed with the patient. I attest to the documentation by the nurse practitioner. Time with Patient: Less than 30
[2018-06-26] MEDS: HYDROcodone/APAP 5-325MG 1 EACH TAB PO PRN (20:29)
[2018-06-26] MEDS: ATORVASTATIN 10 MG TAB PO SCH (20:30)
[2018-06-26] MEDS: traZODone HCL 100 MG TAB PO SCH (20:30)
[2018-06-26] MEDS: AZITHROMYCIN 500 MG TAB PO SCH (20:30)
--- NOTE | 2018-06-26 22:04 | PN ---
PROGRESS NOTE Patient is seen for followup for acute kidney injury and most likely underlying chronic kidney disease as well. Currently patient is maintained on IV fluids. His creatinine is down from 2.59 to 1.8. At this time there are no previous labs available for comparison. Patient also had hypercalcemia, and his calcium has improved. It is down to 9.0 currently. PTH was appropriately low. Patient was also noted to have nutritional vitamin D deficiency. On examination this morning, blood pressure was 150/73, heart rate 84 per minute. Patient is afebrile. EXAMINATION OF THE HEART: S1 and S2. EXAMINATION OF LUNGS: Bilateral breath sounds are heard. ABDOMEN: Soft, non-tender. Examination of lower extremities shows no evidence of edema. 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 Labs show sodium 142, potassium 3.6, chloride 114, BUN 18, serum creatinine 1.83, 25- hydroxy vitamin D 26.2, 125-hydroxy vitamin D is 9. ASSESSMENT: 1. Acute kidney injury, prerenal, currently improved. 2. Possible underlying chronic kidney disease secondary to chronic interstitial nephropathy versus nephrosclerosis. His UA is completely benign and at this time we do not have previous labs available for comparison. Ultrasound is unremarkable. Patient will need followup as outpatient. 3. Hypercalcemia, most likely associated with volume contraction and acute kidney injury. The workup is negative so far, including the PTH level. 4. Nutritional vitamin D deficiency. Will start patient on supplementation. 5. Intermediate possibility for pulmonary embolism with pleuritic chest pain, maintained on anticoagulation. PLAN: Replace vitamin D and follow up as outpatient for possible underlying chronic kidney disease. MMODL / IJN: [id number] /
--- NOTE | 2018-06-26 23:20 | P.PN ---
Subjective Progress Note Date: 06/26/18 67-year-old male who follows in outpatient setting for his difficulty of chronic kidney disease, hyperlipidemia GERD and COPD presented to the emergency center with a 2 day history of discomfort into his left chest. The patient relates that he had the relatively sudden onset of the discomfort to his left chest. He noticed that some physicians were very painful especially laying on his left chest and taking a deep breath and coughing caused more pain. However he was also more short of breath. Because the shortness of breath discomforts continued presented emergency center for evaluation. Because of his chest pain the patient underwent evaluation and there was concerns for underlying pulmonary embolus because of the elevated d-dimer. The patient did have a VQ scan performed within intermediate probability of PE however with his what appears to be acute renal failure CT angiogram is not possible. Computed tomography scan of the chest that was then performed without contrast. The patient has had ultrasound of the chest to evaluate the discomfort to the left nipple area. He relates that he did have a one-time event of some drainage from the left nipple several months ago but has not continued but does seem to have some intermittent discomfort at that site. He has noticed no other masses on the chest wall and no swelling lymph nodes. Due to shortness of breath he has been seen by rheumatology nephrology and cardiology. Does not appear to have an acute myocardial event at this time. 06/24/2018 patient is feeling slightly better today. The severe shortness of br eath is starting to improve. Chest wall pain is improving. Fever and chills are improving. Appetite is improving. Multiple consultants are following. 06/26/2018 patient continues to have improvement still having some mild shortness of breath in the pleuritic chest pain that is improving. Appetite is improving heavier nausea or emesis. Is following with pulmonary critical care and nephrology. Ongoing concerns to pulmonary embolus in his acute on chronic renal failure. Objective - Vital Signs Vital signs: Vital Signs Temp 98.0 F 06/26/18 21:00 Pulse 85 06/26/18 21:00 Resp 16 06/26/18 21:00 BP 168/84 06/26/18 21:00 Pulse Ox 97 06/26/18 21:00 Intake & Output 06/26/18 06/26/18 06/27/18 06:59 18:59 06:59 Intake Total 250 1547.350 Balance 250 1547.350 Intake: Intake, IV Titration 250 1547.350 Amount Heparin Sod,Pork in 0.45% 250 297.350 NaCl 25,000 unit In 0.45 % NaCl 1 250ml.bag @ 18 UNITS/KG/HR 17.658 mls/hr IV .[id number] [facility] Rx#: [id number] Sodium Chloride 0.9% 1, 1200 000 ml @ 150 mls/hr IV . Q6H40M [facility] Rx#:[id number] cefTRIAXone 1 gm In 50 Sodium Chloride 0.9% 50 ml @ 100 mls/hr IVPB Q24H [facility] Rx#:[id number] Other: Voiding Method Toilet Toilet Toilet # Voids 1 - Exam 67-year-old male who is uncomfortable but not in severe distress. HEENT: Anicteric conjunctiva are pink and moist nasal mucosa grossly intact without significant lesions, there is no thrush. Neck: The neck is supple without significant lymphadenopathy or thyromegaly. Lungs: They're symmetrical bilateral air entry, there are a few crackles at left base and a small area of egophony is noted to the left base. No dullness is noted no changes of tactile fremitus Heart: Regular rate and rhythm with an audible S1-S2 soft S4 2/6 systolic murmur left sternal border There is no significant murmur click or rub, PMI was nondisplaced. Abdomen: Positive bowel sounds soft and nontender without palpable masses or organomegaly. There was no guarding or rebound. Extremities: The upper extremities have excellent pulses they are symmetric, no significant petechiae or telangiectasia. No splinter hemorrhages were noted. The lower extremities are free from significant edema. The peripheral pulses were 2+ and symmetric. Neuro: Awake alert oriented to person place and time. There are no acute new gross focal sensory motor deficits. Chest wall is evaluated there is evidence of no significant lesion or mass to the right nipple. Left nipple has a small area of some slight fullness inferior to the nipple. There is nothing expressible. There was no lymphadenopathy in the left axilla or left supraclavicular node. No other abnormal lymph nodes are noted. The skin is otherwise without any rash - Labs CBC & Chem 7: 06/26/18 07:19 06/26/18 07:19 Labs: Abnormal Lab Results - Last 24 Hours (Table) 06/25/18 06/26/18 06/26/18 Range/Units 08:30 07: 07: RBC 3.75 L (4.30-5.90) m/uL Hgb 10.9 L (13.0-17.5) gm/dL Hct 34.1 L (39.0-53.0) % APTT (22.0-30.0) sec Chloride 114 H (98-107) mmol/L Creatinine 1.83 H (0.66-1.25) mg/dL Total Protein 5.7 L (6.3-8.2) g/dL Albumin 3.0 L (3.5-5.0) g/dL Vit D 1,25-Dihydroxy 9 L (20 - 79) pg/mL 06/26/18 06/26/18 Range/Units 07: 15:18 RBC (4.30-5.90) m/uL Hgb (13.0-17.5) gm/dL Hct (39.0-53.0) % APTT 88.2 H 54.2 H (22.0-30.0) sec Chloride (98-107) mmol/L Creatinine (0.66-1.25) mg/dL Total Protein (6.3-8.2) g/dL Albumin (3.5-5.0) g/dL Vit D 1,25-Dihydroxy (20 - 79) pg/mL Laboratory Results WBC 7.7 k/uL (3.8-10.6) 06/26/18: RBC 3.75 m/uL (4.30-5.90) L 06/26/18: Hgb 10.9 gm/dL (13.0-17.5) L 06/26/18: Hct 34.1 % (39.0-53.0) L 06/26/18: MCV 90.8 fL (80.0-100.0) 06/26/18: MCH 28.9 pg (25.0-35.0) 06/26/18: MCHC 31.9 g/dL (31.0-37.0) 06/26/18: RDW 12.9 % (11.5-15.5) 06/26/18 07:19 Plt Count 226 k/uL (150-450) 06/26/18 07:19 Neutrophils % 61 % 06/26/18 07:19 Lymphocytes % 21 % 06/26/18 07:19 Monocytes % 10 % 06/26/18 07:19 Eosinophils % 6 % 06/26/18 07:19 Basophils % 1 % 06/26/18 07:19 Neutrophils # 4.7 k/uL (1.3-7.7) 06/26/18 07:19 Lymphocytes # 1.7 k/uL (1.0-4.8) 06/26/18 07:19 Monocytes # 0.8 k/uL (0-1.0) 06/26/18 07:19 Eosinophils # 0.4 k/uL (0-0.7) 06/26/18 07:19 Basophils # 0.0 k/uL (0-0.2) 06/26/18 07:19 PT 9.8 sec (9.0-12.0) 06/23/18 11:57 INR 0.9 (<1.2) 06/23/18 11:57 APTT 54.2 sec (22.0-30.0) H 06/26/18 15:18 D-Dimer 1.71 mg/L FEU (<0.60) H 06/22/18 23:20 Sodium 142 mmol/L (137-145) 06/26/18 07:19 Potassium 3.6 mmol/L (3.5-5.1) 06/26/18 07:19 Chloride 114 mmol/L (98-107) H 06/26/18 07:19 Carbon Dioxide 23 mmol/L (22-30) 06/26/18 07:19 Anion Gap 5 mmol/L 06/26/18 07:19 BUN 18 mg/dL (9-20) 06/26/18 07:19 Creatinine 1.83 mg/dL (0.66-1.25) H 06/26/18 07:19 Est GFR (CKD-EPI)AfAm 44 (>60 ml/min/1.73 sqM) 06/26/18 07:19 Est GFR (CKD-EPI)NonAf 38 (>60 ml/min/1.73 sqM) 06/26/18 07:19 Glucose 88 mg/dL (74-99) 06/26/18 07:19 Calcium 9.0 mg/dL (8.4-10.2) 06/26/18 07:19 Total Bilirubin 0.4 mg/dL (0.2-1.3) 06/26/18 07:19 AST 30 U/L (17-59) 06/26/18 07:19 ALT 42 U/L (21-72) 06/26/18 07:19 Alkaline Phosphatase 60 U/L (38-126) 06/26/18 07:19 Troponin I <0.012 ng/mL (0.000-0.034) 06/23/18 11:02 NT-Pro-B Natriuret Pep 110 pg/mL 06/22/18 23:20 Total Protein 5.7 g/dL (6.3-8.2) L 06/26/18 07:19 Albumin 3.0 g/dL (3.5-5.0) L 06/26/18 07:19 Triglycerides 145 mg/dL (<150) 06/24/18 06:10 Cholesterol 156 mg/dL (<200) 06/24/18 06:10 LDL Cholesterol, Calc 91 mg/dL (0-99) 06/24/18 06:10 HDL Cholesterol 36 mg/dL (40-60) L 06/24/18 06:10 Vitamin D 25-Hydroxy 26.2 ng/mL (30.0-100.0) L 06/25/18 08:30 Vit D 1,25-Dihydroxy 9 pg/mL (20 - 79) L 06/25/18 08:30 PTH Intact 20.8 pg/mL (14.0-72.0) 06/23/18 12:00 Urine Color Light Yellow 06/23/18 00:46 Urine Appearance Clear (Clear) 06/23/18 00:46 Urine pH 7.0 (5.0-8.0) 06/23/18 00:46 Ur Specific [place] 1.012 (1.001-1.035) 06/23/18 00:46 Urine Protein Negative (Negative) 06/23/18 00:46 Urine Glucose (UA) Negative (Negative) 06/23/18 00:46 Urine Ketones Negative (Negative) 06/23/18 00:46 Urine Blood Negative (Negative) 06/23/18 00:46 Urine Nitrite Negative (Negative) 06/23/18 00:46 Urine Bilirubin Negative (Negative) 06/23/18 00:46 Urine Urobilinogen <2.0 mg/dL (<2.0) 06/23/18 00:46 Ur Leukocyte Esterase Negative (Negative) 06/23/18 00:46 Assessment and Plan (1) Chest pain Current Visit: Yes Status: Acute Code(s): R07.9 - CHEST PAIN, UNSPECIFIED SNOMED Code(s): 60622136 (2) Left lower lobe pneumonia Narrative/Plan: 67-year-old male presents to Hospital with the rather sudden onset of chest pain to the left side of his chest associated with increasing shortness of breath. He noticed with deep cough in laying on his left side the pain was considerably worse. Because shortness of breath was improving he sought care in the emergency center. The presentation was evidence of elevated d-dimer, calcium was elevated and there is evidence of abnormal chest x-ray. The patient had evidence of acute renal failure and constantly could not have a CT angiogram but VQ scan was performed within intermediate probability of a pulmonary embolus. Patient has been started on heparin and there was concerns for potential infectious etiology and the consult was requested. The patient is now his standard computed tomography scan of the chest without contrast revealing evidence of the left lower lobe infiltration, which was suggested by the standard chest x-ray. The patient does have leukocytosis but is not having significant fevers or chills but does feel poorly. He presented is having some pleuritic chest pain related to his pneumonia. Antibiotic therapy with Rocephin and azithromycin as requested. For his pleuritic chest pain some low-dose [place] was added to not have anti-inflammatories given his acute renal failure. He is receiving hydration and his renal function shall be monitored. We'll expect with hydration his calcium should also improve. The patient certainly w ill require follow-up after discharge for resolution of the infiltrate, given the nature and elevated calcium would want to ensure that there is not a residual mass in the area of inflammation. 06/24/2018 patient is feeling better today. He's been seen by pulmonary critical care as well as nephrology and workup is in process. For treatment of underlying pneumonia Rocephin and azithromycin was added and seems to be tolerating that well. We will continue for now. Cultures are process. Renal failure seems to be improving with hydration. His pain is being well managed with the [place] and that we'll continue 06/26/2018 patient has had some further improvement of his status. Creatinine has improved. Nephrology and pulmonology are coordinating care to determine if a CT angiogram can be performed to further evaluate the possibility of pulmonary embolus. There was a left lower lobe infiltrate and he is being treated with Rocephin and azithromycin. Should be able to transition to oral antibiotic therapy at discharge for his pneumonia concern gram-negative, cefuroxime 500 mg every 12 hours could be utilized. Current Visit: Yes Status: Acute Code(s): J18.1 - LOBAR PNEUMONIA, UNSPECIFIED ORGANISM SNOMED Code(s): 498740757 (3) Pulmonary embolism on left Current Visit: Yes Status: Acute Code(s): I26.99 - OTHER PULMONARY EMBOLISM WITHOUT ACUTE COR PULMONALE SNOMED Code(s): 60558260
[2018-06-27] MEDS: SODIUM CHLORIDE 0.9% 1,000 ML IV SCH ×3 (04:25→12:43)
[2018-06-27] MEDS: HEPARIN SOD,PORK IN 0.45% NACL 25,000 UNIT in 0.45% NACL 1 250ML.BAG IV SCH (04:26)
[2018-06-27 05:27] VITALS: BP 156/74; RESP 18; TEMP 98.1
[2018-06-27] MEDS: DOCUSATE 100 MG CAP PO SCH (08:56)
[2018-06-27] MEDS: FLUTICASONE 50MCG/SPRAY NASAL 16GM EA NOSTRIL SCH (08:56)
[2018-06-27] MEDS: MONTELUKAST 10 MG TAB PO SCH (08:56)
[2018-06-27] MEDS: ASPIRIN 325 MG TAB PO SCH (08:56)
[2018-06-27] MEDS: PANTOPRAZOLE 40 MG TABLET PO SCH (08:56)
[2018-06-27] MEDS: ALBUTEROL NEBULIZED 2.5 MG/3 ML INHALATION SCH ×2 (09:20→13:05)
[2018-06-27 09:29] LABS: Basophils # (A) 0.1 k/uL (0-0.2); Basophils % (A) 1 %; Eosinophils # (A) 0.4 k/uL (0-0.7); Eosinophils % (A) 5 %; HCT 32.6 % (39.0-53.0); HGB 10.8 gm/dL (13.0-17.5); Lymphocytes # (A) 1.5 k/uL (1.0-4.8); Lymphocytes % (A) 19 %; MCH 29.4 pg (25.0-35.0); MCHC 33.3 g/dL (31.0-37.0); MCV 88.4 fL (80.0-100.0); Monocytes # (A) 0.7 k/uL (0-1.0); Monocytes % (A) 9 %; Neutrophils # (A) 5.2 k/uL (1.3-7.7); Neutrophils % (A) 65 %; Platelet Count 238 k/uL (150-450); RBC 3.68 m/uL (4.30-5.90); RDW 13.7 % (11.5-15.5)
[2018-06-27 09:56] LABS: Calcium 8.9 mg/dL (8.4-10.2); Potassium 3.4 mmol/L (3.5-5.1); Total Bilirubin 0.4 mg/dL (0.2-1.3); Total Protein 5.7 g/dL (6.3-8.2)
[2018-06-27] MEDS ORDERED: APIXABAN 5 MG TAB PO SCH (11:45)
[2018-06-27] MEDS ORDERED: CHOLECALCIFEROL 1,000 UNIT TAB PO SCH ×2 (12:00)
[2018-06-27] MEDS ORDERED: POTASSIUM CHLORIDE ER 20 MEQ TAB.ER PO STA (12:29)
[2018-06-27 13:08] VITALS: PULSE 80
--- NOTE | 2018-06-27 13:53 | P.DS ---
Providers Date of admission: 06/23/18 12:43 Expected date of discharge: 06/27/18 Attending physician: Madelin Perry Consults: 06/23/18 02:17 Consult Physician Routine Consulting Provider: Tevin Lott Consult Reason/Comments: chest pain Do you want consulting provider notified?: Yes 06/23/18 11:30 Consult Physician Routine Consulting Provider: Natan Aldana Consult Reason/Comments: PE Do you want consulting provider notified?: Yes 06/23/18 12:40 Consult Physician Routine Consulting Provider: Johnny Uriarte Consult Reason/Comments: possible CKD, LIANNE? Do you want consulting provider notified?: Yes 06/23/18 12:42 Consult Physician Routine Consulting Provider: Marcelo Perez Consult Reason/Comments: left breast lump history of nipple drainage Do you want consulting provider notified?: Yes Primary care physician: [facility] Course: Discharge diagnosis 1. Acute left-sided pleuritic chest pain: Possibly secondary to pneumonia or PE. With elevated d-dimer and VQ scan showing intermediate probability of PE. Patient has been placed on IV heparin. Pulmonary service has been consulted and appreciate their input. Venous Doppler negative for DVT We are unable to do a CTA of the chest due to elevated creatinine. Pulmonary has started IV fluids and if kidney functions normalize may consider CTA of the chest. Creatinine is still 1.6. Unable to complete a CTA of the chest. Patient started on Eliquis. Pulmonary recommending Eliquis for 3 months. 2. Acute kidney injury secondary to volume depletion. Creatinine at discharge is 1.6. Patient will follow up with nephrology in the office in one week. Renal ultrasound was unremarkable. Patient likely has underlying chronic kidney disease secondary to chronic interstitial nephropathy versus nephrosclerosis per nephrology. 3. Hypercalcemia with calcium level of 11.5 on admission. Likely secondary to volume contraction and acute kidney injury. Improved with IV fluids. Workup was negative. Patient seen by nephrology. Calcium normalized. Parathyroid hormone 20.8 Vitamin D is not elevated but low at 26.2 and vitamin D hydroxy 125 is low at 9 due to vitamin D deficiency. Patient started on supplement. 4. Hyperlipidemia 5. History of COPD stable 6. Left lower lobe pneumonia: Continue Rocephin and azithromycin. Appreciate infectious disease evaluation 7. GERD 8. Left breast lesion with ultrasound showing a probably benign solid vascular lesion at the posterior nipple measuring 1.4 x 0.7 cm 9. Pneumonia continue Ceftin for 7 days 10. Vitamin D deficiency continue vitamin D supplement Hospital course This is a 67-year-old male, patient of Dr. Brooke. He has a known past medical history of COPD, GERD, hyperlipidemia and possible chronic kidney disease. He is also an ex smoker. Patient presents to the ER with complaints of left-sided chest pain. Pain has been intermittent worse with taking a deep breath. Initially he was admitted to observation and cardiology was consulted. Troponins are negative 2 sets. EKG showing normal sinus rhythm. Patient was found have elevated d-dimer of 1.71. He underwent a VQ scan showing intermediate probability of PE. He was started on IV heparin and pulmonary service was placed on consults. Patient had chest x-ray showing small left pleural effusion left lower lobe atelectasis versus infiltrate. Patient denies cough, fever, chills or sweats. Denies any nausea or vomiting. Denies any bowel movement changes or urinary symptoms. Patient does report where the left- sided chest pain is located behind the left breast he did have swelling and felt a lump in that area with nipple drainage that had started in November. I'm he has had no further drainage since November. He reports still feeling a lump. There is no redness or erythema. Ultrasound of the left breast and consult for infectious disease in place. Creatinine is 2.59. Patient reports the last time he had seen Dr. Brooke his kidneys had come back to normal. Nephrology will be consulted. Patient also had elevated calcium level of 11.5. Repeat calcium of 11.4. Pulmonary has ordered parathyroid hormone level. Patient will be changed to inpatient status. Patient is also receiving IV fluids and PTH level ordered by pulmonary service. 06/24/2018 patient still complaining of left-sided chest pain specimen taking in a deep breath. IV morphine was added yesterday for pain control. Patient had computed tomography scan of the chest completed showing correlate for left lower lobe pneumonia. Patient does report improvement in his cough. Patient was seen by infectious disease they added Rocephin and azithromycin. Possible chest pain could be pleuritic from his cough. White count has normalized from 12-10.6. Venous Doppler was negative for DVT. Patient remains on IV heparin for possible PE. Echo showed EF of 50-55 moderate left ventricle hypertrophy. Calcium level has come down from 11.4-10.1. Parathyroid within normal range at 20.8. Creatinine has decreased from 2.5-2.18. Ultrasound of the breast had shown a solid vascular lesion at the posterior nipple of 1.4 x 0.7 cm in size probably benign. On 06/25/2018 patient remains on heparin drip for possible PE. At this time patient is resting comfortably in bed. Patient is still complaining of intermittent left chest pain. Patient remains on IV azithromycin and Rocephin. Creatinine remains elevated at 2.18 and bun 24. At this time patient denies nausea vomiting or diarrhea. Patient denies any urinary burning or frequency 06/26/2018 patient is still complaining of left-sided chest pain. He does report it's a little worse today. There is no rash evident. He has been up and ambulating without chest pain or shortness of breath. Again the chest discomfort is when he takes in a deep breath. Creatinine has come down from 1.88 to 1.83 will await further instruction for CTA her pulmonary service. Patient does have a low vitamin D level of 26.2. He will be started on vitamin D supplement. Patient also complaining of constipation. Denies any abdominal pain or nausea or vomiting. 06/27/2018 patient started on Eliquis for treatment for possible PE. Unable to complete CTA of the chest due to elevated creatinine. Pulmonary services recommending Eliquis for total 3 months. Patient will follow-up with pulmonary in the outpatient setting. For his acute kidney injury it has improved with IV fluid hydration. Creatinine initially was 2.59 and has come down to 1.6. We will check a BMP in 3 days. Have patient follow-up with nephrology in 1 week. Patient also had evidence of hypercalcemia was seen by nephrology. Parathyroid hormone level was within normal range. Vitamin D levels were low due to vitamin D deficiency. Calcium level did normalize with IV fluids. Patient also started on antibiotics for possible pneumonia. Infectious diseases recommending Ceftin for 7 more days. Patient has shown improvement. He is medically stable for discharge. I performed an examination of the patient and discussed their management with the physician Brake Repairer Hydraulic. I have reviewed the Physician Brake Repairer Hydraulic's notes and agree with the documented findings and plan of care Patient Condition at Discharge: Stable Plan - Discharge Summary Discharge Rx Participant: No New Discharge Prescriptions: New Cefuroxime Axetil [Cefuroxime] 500 mg PO BID #14 tab Apixaban [Eliquis Starter Pack (for VTE)] 5 mg PO DIRECTED 30 Days #1 pack Lovastatin [Mevacor] 40 mg PO HS #30 tab HYDROcodone/APAP 5-325MG [[place] 5-325] 1 each PO Q8HR PRN #9 tab PRN Reason: Pain Omeprazole [PriLOSEC] 10 mg PO DAILY #30 Cholecalciferol [Vitamin D3] 1,000 unit PO DAILY@1200 #30 tab Continue Montelukast [Singulair] 10 mg PO DAILY Dicyclomine [Bentyl] 20 mg PO DAILY traZODone HCL [Desyrel] 100 mg PO HS Fluticasone Nasal Carmichaels [Flonase Nasal Carmichaels] 2 spray EA NOSTRIL BID Budesonide-Formot 160-4.5 Mcg [Symbicort 160-4.5 Mcg Inhaler] 2 puff INHALATION RT-BID Aspirin EC [Ecotrin Low Dose] 81 mg PO DAILY Discharge Medication List Dicyclomine [Bentyl] 20 mg PO DAILY 10/12/14 [History] Fluticasone Nasal [place]aels [Flonase Nasal Carmichaels] 2 spray EA NOSTRIL BID 10/12/14 [History] Montelukast [Singulair] 10 mg PO DAILY 10/12/14 [History] traZODone HCL [Desyrel] 100 mg PO HS 10/12/14 [History] Aspirin EC [Ecotrin Low Dose] 81 mg PO DAILY 06/23/18 [History] Budesonide-Formot 160-4.5 Mcg [Symbicort 160-4.5 Mcg Inhaler] 2 puff INHALATION RT-BID 06/23/18 [History] Apixaban [Eliquis Starter Pack (for VTE)] 5 mg PO DIRECTED 30 Days #1 pack 06/27/18 [Rx] Cefuroxime Axetil [Cefuroxime] 500 mg PO BID #14 tab 06/27/18 [Rx] Cholecalciferol [Vitamin D3] 1,000 unit PO DAILY@1200 #30 tab 06/27/18 [Rx] HYDROcodone/APAP 5-325MG [[place] 5-325] 1 each PO Q8HR PRN #9 tab 06/27/18 [Rx] Lovastatin [Mevacor] 40 mg PO HS #30 tab 06/27/18 [Rx] Omeprazole [PriLOSEC] 10 mg PO DAILY #30 capsule. 06/27/18 [Rx] Follow up Appointment(s)/Referral(s): Deedee Diaz MD [STAFF PHYSICIAN] - 1 Week ( office not open ,patient will have to call and schedule own appt) Ynae Brooke DO [Primary Care Provider] - 07/04/18 9:15 am ([facility] is seen in [facility]) Natan Aldana MD [STAFF PHYSICIAN] - 08/07/18 1:30 pm Ambulatory/Diagnostic Orders: Basic Metabolic Panel [LAB.AMB] Time Frame: 3 Days, Location: None Selected Patient Instructions/Handouts: Cefuroxime (By mouth), Hydrocodone/Acetaminophen (By mouth), Vitamin D (By mouth), Apixaban (By mouth) Activity/Diet/Wound Care/Special Instructions: Diet: Regular Activity: as tolerated Patient is to continue on Eliquis for a total of 3 months Discharge Disposition: HOME SELF-CARE
--- NOTE | 2018-06-27 13:57 | P.PN ---
Subjective Progress Note Date: 06/27/18 Principal diagnosis: Left-sided pleuritic-type chest pain, rule out underlying pulmonary embolism This is a 67-year-old male patient, an ex-smoker who quit smoking. The patient carries at least [id number] smoking history. The patient is retired. The patient came into the emergency department yesterday because of an acute left- sided chest pain which is pleuritic in nature. No cough. No sputum production. No fever or chills. No cough pain. No leg swelling. No previous history of DVT or pulmonary embolism. No 72 coronary artery disease. The patient's cardiac enzymes have been negative. D-dimer is at 1.7. The patient had an abnormal renal function with a creatinine of 2.59. The chronicity of this issue is not known. White cell count is not elevated at 11.3. The BNP is not elevated. The patient is currently on IV heparin. The patient was seen by cardiology. Echo was ordered and results are still pending. Meanwhile, a VQ scan was ordered and it was of a intermediate probability with some mismatches noted in the left upper lobe area. The chest x-ray shows limited infiltration of the left lung base along with some diminished breath sounds on examination. Patient is seen today 06/24/2018 in follow-up on the regular medical floor. He is awake and alert in no acute distress. He is resting flat in bed. He is on room air. No worsening shortness of breath, cough or congestion. He still has some left-sided chest discomfort on deep inhalation. Computed tomography scan of the chest revealed some left lower lobe pneumonia. Underlying mass is not completely excluded. Dopplers of the lower extremities were negative for DVT. White count 10.6. Hemoglobin 12.9. Creatinine 2.18. He remains on ceftriaxone and azithromycin along with bronchodilators. Heparin drip continues. On 06/25/2018 patient is seen in follow-up on medical surgical floor. He still has persistent left chest discomfort which is exacerbated by deep breaths. CT chest was obtained and showed left lower lobe pneumonia, patient was started on antibiotics, currently on a combination of Rocephin and Zithromax. He is receiving oral pain medications he continues on IV heparin for a possibility of underlying pulmonary embolism. These labs were reviewed, and showed no evidence of leukocytosis, with blood cell count of 8.3, hemoglobin is 11.6, patient's renal profile is improving, with BUN down to 19 and creatinine is 1.88, electrolytes are unremarkable. LFTs are within normal limits. Ultrasound of the kidney showed no hydronephrosis or nephrolithiasis. On 06/26/2017 patient seen in follow-up on medical surgical floor. In no acute distress, still has left-sided chest discomfort exacerbated by deep inspiration. I'll signs are stable, no fever or chills. No acute events overnight, he remains on heparin drip IV hydration, today's labs have been reviewed, and his renal profile is stable, it is improved, but not back to normal, B1 is 18, creatinine is 1.83. Patient is on antibiotics for possibility of left lower lobe pneumonia, lung sounds reveal courses motoric crackles over left lower base, clear on the right. Vitals are stable, he is on room air, with pulse ox of 98%, no fever or chills. On 06/27/2018 patient is seen in follow-up on medical surgical floor. he is awake and alert, he states the left-sided is pain has improved, signs have been stable, his been afebrile. Room air pulse ox is 94%. No significant cough or chest congestion, patient is approved for Eliquis, for right now she still on heparin drip, we will start his first dose of Eliquis today, discontinue the heparin drip, no other acute events overnight, lung sounds reveal some crackles at the left base, less prominent on today's exam, no rhonchi no wheezing. From pulmonary perspective patient is stable for discharge home today. Objective - Vital Signs Vital signs: Vital Signs Temp 98.1 F 06/27/18 05:00 Pulse 80 06/27/18 13:20 Resp 18 06/27/18 05:00 BP 156/74 06/27/18 05:00 Pulse Ox 94 L 06/27/18 05:00 Intake & Output 06/26/18 06/27/18 06/27/18 18:59 06:59 18:59 Intake Total 3255.904 9000.985 85.543 Balance 3563.801 0623.985 85.543 Intake: Intake, IV Titration 1505.245 5974.985 85.543 Amount Heparin Sod,Pork in 0.45% 297.350 196.985 85.543 NaCl 25,000 unit In 0.45 % NaCl 1 250ml.bag @ 18 UNITS/KG/HR 17.658 mls/hr IV [id number] WALLY Rx#: [id number] Sodium Chloride 0.9% 1, 1200 1200 000 ml @ 150 mls/hr IV . Q6H40M WALLY Rx#:[id number] cefTRIAXone 1 gm In 50 100 Sodium Chloride 0.9% 50 ml @ 100 mls/hr IVPB Q24H WALLY Rx#:[id number] Oral 250 Other: Voiding Method Toilet Toilet # Voids 2 - Exam GENERAL EXAM: Alert, pleasant, 67-year-old white male, comfortable in no apparent distress. HEAD: Normocephalic/atraumatic. EYES: Normal reaction of pupils, equal size. Conjunctiva pink, sclera white. NOSE: Clear with pink turbinates. THROAT: No erythema or exudates. NECK: No masses, no JVD, no thyroid enlargement, no adenopathy. CHEST: No chest wall deformity. Symmetrical expansion. LUNGS: Equal air entry with no crackles over left lower lobe, no wheezes, diminished breath sounds at the bases CVS: Regular rate and rhythm, normal S1 and S2, no gallops, no murmurs, no rubs ABDOMEN: Soft, nontender. No hepatosplenomegaly, normal bowel sounds, no guarding or rigidity. EXTREMITIES: No clubbing, no edema, no cyanosis, 2+ pulses and upper and lower extremities. MUSCULOSKELETAL: Muscle strength and tone normal. SPINE: No scoliosis or deformity SKIN: No rashes CENTRAL NERVOUS SYSTEM: Alert and oriented -3. No focal deficits, tone is normal in all 4 extremities. PSYCHIATRIC: Alert and oriented -3. Appropriate affect. Intact judgment and insight. - Labs CBC & Chem 7: 06/27/18 08:44 06/27/18 08:44 Labs: Abnormal Lab Results - Last 24 Hours (Table) 06/25/18 06/26/18 06/27/18 Range/Units 08:30 15:18 08:44 RBC 3.68 L (4.30-5.90) m/uL Hgb 10.8 L (13.0-17.5) gm/dL Hct 32.6 L (39.0-53.0) % APTT 54.2 H (22.0-30.0) sec Potassium (3.5-5.1) mmol/L Chloride (98-107) mmol/L Creatinine (0.66-1.25) mg/dL Glucose (74-99) mg/dL Total Protein (6.3-8.2) g/dL Albumin (3.5-5.0) g/dL Vit D 1,25-Dihydroxy 9 L (20 - 79) pg/mL 06/27/18 06/27/18 Range/Units 08:44 08:44 RBC (4.30-5.90) m/uL Hgb (13.0-17.5) gm/dL Hct (39.0-53.0) % APTT 52.7 H (22.0-30.0) sec Potassium 3.4 L (3.5-5.1) mmol/L Chloride 114 H (98-107) mmol/L Creatinine 1.60 H (0.66-1.25) mg/dL Glucose 139 H (74-99) mg/dL Total Protein 5.7 L (6.3-8.2) g/dL Albumin 3.0 L (3.5-5.0) g/dL Vit D 1,25-Dihydroxy (20 - 79) pg/mL Assessment and Plan Plan: Assessment: 1 acute pleuritic left-sided chest pain with a mild elevation of the d-dimer at 1.7 and abnormal VQ scan with a mismatch involving left upper lobe. Consider pulmonary embolism. Currently on IV heparin and pneumonia is also considered he remains on ceftriaxone and azithromycin. 2 Abnormal creatinine, chronic kidney disease and the patient has a normal urinalysis, improving. Ultrasound of the kidneys did not show any evidence of hydronephrosis or nephrolithiasis 3 COPD 4 hyperlipidemia 5 history of depression 6 hypercalcemia with a calcium level of 11.5, currently 10.1. Plan: Start first dose Eliquis 10 mg twice daily for 7 days, 5 mg twice daily thereafter. Stop the heparin drip. Patient has had no acute events overnight, no worsening dyspnea, his left sided pleuritic chest pain is improving. Tolerating ambulation, he is on room air, from pulmonary perspective he stable for discharge home today. Follow-up in the office within one or 2 weeks I performed a history & physical examination of the patient and discussed their management with my nurse practitioner, Sarita Pineda. I reviewed the nurse practitioner's note and agree with the documented findings and plan of care. Lung sounds are positive for diminished breath sounds at the. The findings and the impression was discussed with the patient. I attest to the documentation by the nurse practitioner. Time with Patient: Less than 30
--- NOTE | 2018-06-27 19:44 | PN ---
PROGRESS NOTE Patient is seen for followup for acute kidney injury. His renal function continues to improve. His UA was completely benign and the ultrasound was unremarkable. Patient has been maintained on IV fluids. Creatinine is down to 1.6 from 2.59 on initial admission. No previous labs are available for comparison. The patient was admitted with pleuritic chest pain for which he is maintained on anticoagulation as V/Q scan showed intermediate possibility for PE. A CT scan with IV contrast was not done secondary to renal failure. The patient will be discharged home on anticoagulation. PHYSICAL EXAMINATION: Blood pressure this morning was 156/74, heart rate 84 per minute. He is afebrile. Examination of the heart S1, S2. Examination of the lungs bilateral breath sounds are heard. Abdomen is soft, nontender. Exam of lower extremities shows no evidence of edema. ORACLE ARCHITECT exam is grossly intact. LABS: Show sodium 142, potassium 3.4, BUN 13, serum creatinine 1.6, hemoglobin 10.8 g/dL. ASSESSMENT: 1. Acute kidney injury, prerenal, currently improving. 2. Pleuritic chest pain with V/Q scan showing intermediate possibility of pulmonary embolism, maintained on anticoagulation. 3. Nutrition vitamin D deficiency, started on supplementation. 4. Hypercalcemia on initial admission with appropriately low PTH levels. I do not see the Richard level back yet. We will follow up on that as outpatient. PLAN: Patient is stable for discharge. Follow up as outpatient. We will repeat the RICHARD level. We will check an RICHARD level if it was not drawn this admission. Patient should continue with vitamin D supplementation. MMODL / IJN: [id number] /
== END 2018-06-27 14:40 | disposition home or self-care (01) | DRG 175 ==
LOC: EC 22:58 → 1SOBS 06-23 02:20 → OBSVTOIN 06-23 12:43 → 3NMEDONC 06-24 11:01
PROVIDERS: ADMIT Internal Medicine; ATTEND Internal Medicine
DX: I26.99 Other pulmonary embolism without acute cor pulmonale (principal); J18.1 Lobar pneumonia, unspecified organism; N17.9 Acute kidney failure, unspecified; J44.0 Chronic obstructive pulmonary disease with (acute) lower respiratory infection; N11.9 Chronic tubulo-interstitial nephritis, unspecified; E86.9 Volume depletion, unspecified; E83.52 Hypercalcemia; I12.9 Hypertensive chronic kidney disease with stage 1 through stage 4 chronic kidney disease, or unspecified chronic kidney disease; N18.9 Chronic kidney disease, unspecified; E55.9 Vitamin D deficiency, unspecified; E78.5 Hyperlipidemia, unspecified; D24.2 Benign neoplasm of left breast; K21.9 Gastro-esophageal reflux disease without esophagitis; K59.00 Constipation, unspecified; F32.9 Major depressive disorder, single episode, unspecified; R79.1 Abnormal coagulation profile; Z79.82 Long term (current) use of aspirin; Z79.51 Long term (current) use of inhaled steroids; Z79.899 Other long term (current) drug therapy; Z87.891 Personal history of nicotine dependence; Z86.010 Personal history of colon polyps; Z80.0 Family history of malignant neoplasm of digestive organs
CPT/HCPCS: 36415; 71046; 71250; 76770; 78582; 80048; 80053; 80061; 81003; 82306; 82652; 83880; 83970; 84484; 85025; 85379; 85610; 85730; 86334; 86335; 93005; 93306; 93970; 94640; 94760; 96372; 99285

== ENCOUNTER → 2018-07-07 | Outpatient (CLI) | payer MEDICARE ==
[2018-07-07 13:10] LABS: Amorphous Sediment,Urine Rare /hpf; Appearance,Urine Cloudy (Clear); Bacteria,Urine Rare /hpf; Bilirubin,Urine Negative (Negative); Blood,Urine Negative (Negative); Color,Urine Yellow; Glucose,Urine (UA) Negative (Negative); Hyaline Casts,Urine 1 /lpf (0-2); Ketones,Urine Negative (Negative); Leukocyte Esterase,Urine Trace (Negative); Mucus,Urine Rare /hpf; Nitrite,Urine Negative (Negative); Protein,Urine Negative (Negative); RBC,Urine <1 /hpf (0-5); Specific Gravity,Urine 1.015 (1.001-1.035); Urobilinogen,Urine <2.0 mg/dL (<2.0); WBC,Urine 2 /hpf (0-5)
[2018-07-08 01:56] LABS: Vitamin D 25 Hydroxy 41.6 ng/mL (30.0-100.0)
== END ==
LOC: LABWHC1 10:44
PROVIDERS: ATTEND Nurse Practitioner Family
DX: E83.52 Hypercalcemia (principal); N17.9 Acute kidney failure, unspecified; N39.0 Urinary tract infection, site not specified; R80.0 Isolated proteinuria
CPT/HCPCS: 36415; 81001; 82043; 82103; 82306; 82570; 83970; 84443

== ENCOUNTER → 2018-07-09 | Outpatient (CLI) | payer MEDICARE ==
[~2018-07-09] MED LIST: SODIUM CHLORIDE 0.9% 500 ML 500 ML in EMPTY BAG 1 BAG IV PRN; ZOLEDRONIC ACID 4 MG in SODIUM CHLORIDE 0.9% 100 ML IV ONE
[2018-07-09 14:39] VITALS: BP 142/80; PULSE 89; RESP 16; TEMP 98
== END ==
LOC: PROCWHC3 14:03
PROVIDERS: ATTEND Nurse Practitioner Family
DX: E83.52 Hypercalcemia (principal); N17.9 Acute kidney failure, unspecified
CPT/HCPCS: 96365; J3489

== ENCOUNTER → 2018-07-15 | Outpatient (CLI) | payer MEDICARE ==
[2018-07-15 19:02] LABS: Albumin 4.3 g/dL (3.80-4.90); Albumin/Globulin Ratio 1.87 (1.60-3.17); Anion Gap 6.4 mmol/L (4.00-12.00); Calcium 9.1 mg/dL (8.7-10.3); Carbon Dioxide 27.6 mmol/L (21.6-31.8); Globulin 2.3 g/dL (1.6-3.3); Potassium 4.8 mmol/L (3.5-5.5); Total Bilirubin 0.3 mg/dL (0.2-1.2); Total Protein 6.6 g/dL (6.2-8.2)
== END | disposition home or self-care (01) ==
LOC: LABWHC1 11:37
PROVIDERS: ATTEND Nurse Practitioner Family
DX: N17.9 Acute kidney failure, unspecified (principal)
CPT/HCPCS: 36415; 80053

== ENCOUNTER → 2018-07-31 | Outpatient (CLI) | payer MEDICARE ==
[2018-07-31 19:15] LABS: Anion Gap 6.5 mmol/L (4.00-12.00); Calcium 9.3 mg/dL (8.7-10.3); Carbon Dioxide 24.5 mmol/L (21.6-31.8); Potassium 4.4 mmol/L (3.5-5.5)
== END | disposition home or self-care (01) ==
LOC: LABWHC1 13:44
PROVIDERS: ATTEND Internal Medicine Nephrology
DX: N18.3 Chronic kidney disease, stage 3 (moderate) (principal)
CPT/HCPCS: 36415; 80048

== ENCOUNTER 2023-03-21 23:05 | Emergency (ER) | payer MEDICARE ==
[2023-03-21 23:32] VITALS: TEMP 98.6
[2023-03-22 00:14] LABS: Basophils # (A) 0.1 k/uL (0-0.2); Basophils % (A) 1 %; Eosinophils # (A) 0.4 k/uL (0-0.7); Eosinophils % (A) 3 %; HCT 48.2 % (39.0-53.0); HGB 16.8 gm/dL (13.0-17.5); Lymphocytes # (A) 2.5 k/uL (1.0-4.8); Lymphocytes % (A) 21 %; MCH 30.6 pg (25.0-35.0); MCHC 34.7 g/dL (31.0-37.0); MCV 88.1 fL (80.0-100.0); Mean Platelet Volume 8.3; Monocytes # (A) 0.9 k/uL (0-1.0); Monocytes % (A) 8 %; Neutrophils # (A) 7.7 k/uL (1.3-7.7); Neutrophils % (A) 66 %; Platelet Count 210 k/uL (150-450); RBC 5.47 m/uL (4.30-5.90); RDW 13.2 % (11.5-15.5); WBC 11.8 k/uL (3.8-10.6)
[2023-03-22 00:31] LABS: ALT 69 U/L (4-49); AST 45 U/L (17-59); African American GFR (CKD) 66 (>60 ml/min/1.73 sqM); Albumin 4.6 g/dL (3.5-5.0); Alkaline Phosphatase 78 U/L (38-126); Anion Gap 13 mmol/L; Blood Urea Nitrogen 22 mg/dL (9-20); Calcium 9.7 mg/dL (8.4-10.2); Carbon Dioxide 22 mmol/L (22-30); Chloride 104 mmol/L (98-107); Glucose 120 mg/dL (74-99); Non-African American GFR(CKD) 57 (>60 ml/min/1.73 sqM); Sodium 139 mmol/L (137-145); Total Bilirubin 0.7 mg/dL (0.2-1.3); Total Protein 7.9 g/dL (6.3-8.2)
[2023-03-22 00:48] LABS: Partial Thromboplastin Time 27.2 sec (22.0-30.0); Prothrombin Time 10.7 sec (10.0-12.5)
[2023-03-22] MEDS ORDERED: OXYMETAZOLINE 0.05% NASL SPRAY 1 SPRAY BOTTLE NASAL STA (03:54)
--- NOTE | 2023-03-22 04:11 | ED ---
ENT HPI - General Chief complaint: ENT Stated complaint: Nose bleed Time Seen by Provider: 03/22/23 03:43 Source: patient, RN notes reviewed, old records reviewed Mode of arrival: ambulatory Limitations: no limitations - History of Present Illness Initial comments: This is a 72-year-old male to the emergency department today for evaluation. Patient's blood pressure has been in the emergency room. Patient is having significant bleeding although it has improved away time in the ER. Patient has no other complaints no feelings of lightheadedness dizziness weakness or near syncope. Patient is not bleeding MD complaint: epistaxis -: hour(s) Location: nose Severity: moderate Severity scale (1-10): 6 Consistency: constant Improves with: none Worsens with: none Context-Epistaxis: warfarin use (Patient is on anticoagulation), trauma (She denies picking his nose) Associated Symptoms: other (0) - Related Data Home Medications Medication Instructions Recorded Confirmed Dicyclomine [Bentyl] 20 mg PO DAILY 10/12/14 07/09/18 Fluticasone Nasal [place] [Flonase 2 spray EA NOSTRIL BID 10/12/14 07/09/18 Nasal [place]] Montelukast [Singulair] 10 mg PO DAILY 10/12/14 07/09/18 traZODone HCL [Desyrel] 100 mg PO HS 10/12/14 07/09/18 Aspirin EC [Ecotrin Low Dose] 81 mg PO DAILY 06/23/18 07/09/18 Budesonide-Formot 160-4.5 Mcg 2 puff INHALATION RT-BID 06/23/18 07/09/18 [Symbicort 160-4.5 Mcg Inhaler] Previous Rx's Medication Instructions Recorded Apixaban [Eliquis Starter Pack 5 mg PO DIRECTED 30 Days #1 pack 06/27/18 (for VTE)] Cholecalciferol [Vitamin D3 (25 1,000 unit PO DAILY@1200 #30 tab 06/27/18 Mcg = 1000 Iu)] HYDROcodone/APAP 5-325MG [[place] 1 each PO Q8HR PRN #9 tab 06/27/18 5-325] Lovastatin [Mevacor] 40 mg PO HS #30 tab 06/27/18 Omeprazole [PriLOSEC] 10 mg PO DAILY #30 capsule. 06/27/18 cefUROXime axetiL [Cefuroxime] 500 mg PO BID #14 tab 06/27/18 Allergies Allergy/AdvReac Type Severity Reaction Status Date / Time No Known Allergies Allergy Verified 07/09/18 14:16 Review of Systems ROS Statement: Those systems with pertinent positive or pertinent negative responses have been documented in the HPI. ROS Other: All systems not noted in ROS Statement are negative. Past Medical History Past Medical History: COPD, GERD/Reflux, Hyperlipidemia History of Any Multi-Drug Resistant Organisms: None Reported Past Surgical History: Orthopedic Surgery Additional Past Surgical History / Comment(s): Polyps from previous colonoscopy, EGD. Minor surgery on R knee. Past Anesthesia/Blood Transfusion Reactions: No Reported Reaction Past Psychological History: No Psychological Hx Reported Smoking Status: Never smoker Past Alcohol Use History: Occasional Past Drug Use History: None Reported - Past Family History Mother Family Medical History: Cancer Additional Family Medical History / Comment(s): Colon General Exam Limitations: no limitations General appearance: alert, in no apparent distress Head exam: Present: atraumatic, normocephalic, normal inspection Eye exam: Present: normal appearance, PERRL, EOMI. Absent: scleral icterus, con junctival injection, periorbital swelling ENT exam: Present: normal exam, mucous membranes moist Neck exam: Present: normal inspection. Absent: tenderness, meningismus, lymphadenopathy Respiratory exam: Present: normal lung sounds bilaterally. Absent: respiratory distress, wheezes, rales, rhonchi, stridor Cardiovascular Exam: Present: regular rate, normal rhythm, normal heart sounds. Absent: systolic murmur, diastolic murmur, rubs, gallop, clicks GI/Abdominal exam: Present: soft, normal bowel sounds. Absent: distended, tenderness, guarding, rebound, rigid Extremities exam: Present: normal inspection, full ROM, normal capillary refill. Absent: tenderness, pedal edema, joint swelling, calf tenderness Back exam: Present: normal inspection Neurological exam: Present: alert, oriented X3, CN II-XII intact Psychiatric exam: Present: normal affect, normal mood Skin exam: Present: warm, dry, intact, normal color. Absent: rash Course Vital Signs 03/21/23 03/22/23 03/22/23 23:19 03:16 05:07 Temperature 98.6 F Pulse Rate 57 L 107 H 82 Respiratory 16 18 16 Rate Blood Pressure 191/103 119/72 129/92 O2 Sat by Pulse 95 97 97 Oximetry - Reevaluation(s) Reevaluation #1: Medical records reviewed Reevaluation #2: Patient symptoms improved Reevaluation #3: Patient informed results and questions answered Reevaluation #4: Was pt. sent in by a medical professional or institution (TANIKA Jean, [employer], urgent care, hospital, or residential...) When possible be specific @ -no Did you speak to anyone other than the patient for history (EMS, parent, family, police, friend...)? What history was obtained from this source @ -no Did you review nursing and triage notes (agree or disagree)? Why? @ -agree Are old charts reviewed (outside hosp., previous admission, EMS record, old EKG, old radiological studies, urgent care reports/EKG's, residential records)? Report findings @ -yes Differential Diagnosis (chest pain, altered mental status, abdominal pain women, abdominal pain men, vaginal bleeding, weakness, fever, dyspnea, syncope, headache, dizziness, GI bleed, back pain, seizure, CVA, palpatations, mental health, musculoskeletal)? @ -prior EKG interpreted by me (3pts min.). @ -yes X-rays interpreted by me (1pt min.). @ -no CT interpreted by me (1pt min.). @ -no U/S interpreted by me (1pt. min.). @ -no What testing was considered but not performed or refused? (CT, X-rays, U/S, labs)? Why? @ -none What meds were considered but not given or refused? Why? @ -none Did you discuss the management of the patient with other professionals (professionals i.e. TANIKA Jean, [employer], lab, RT, psych nurse, oncology social worker, cbx operator, teacher, parcel post officer, family caseworker)? Give summary @ -no Was smoking cessation discussed for >3mins.? @ -no Were there social determinants of health that impacted care today? How? (Homelessness, low income, unemployed, alcoholism, drug addiction, transportation, low edu. Level, literacy, decrease access to med. care, half-way, rehab)? @ -none Was there de-escalation of care discussed even if they declined (Discuss DNR or withdrawal of care, Hospice)? DNR status @ -no What co-morbidities impacted this encounter? (DM, HTN, Smoking, COPD, CAD, Cancer, CVA, ARF, Chemo, Hep., AIDS, mental health diagnosis, sleep apnea, morbid obesity)? @ -none Was patient admitted / discharged? Hospital course, mention meds given and route, prescriptions, significant lab abnormalities, going to OR and other pertinent info. @ - 72 male to the ER today for evaluation of epistaxis on anticoagulation. If his bleeding is able to be stopped here in the ER without difficulty and he can be discharged home Discharge Was critical care preformed (if so, how long)? @ -no Undiagnosed new problem with uncertain prognosis? @ -no Drug Therapy requiring intensive monitoring for toxicity (Heparin, Nitro, Insulin, Cardizem)? @ -no Were any procedures done? @ -no Diagnosis/symptom? @ -Epistaxis Acute, or Chronic, or Acute on Chronic? @ -Acute Uncomplicated (without systemic symptoms) or Complicated (systemic symptoms)? @ -Complicated Side effects of treatment? @ -no Exacerbation, Progression, or Severe Exacerbation? @ -exacerbation Poses a threat to life or bodily function? How? (Chest pain, [place], [place], pneumonia, PE, COPD, DKA, ARF, appy, cholecystitis, CVA, Diverticulitis, Homicidal, Suicidal, threat to staff... and all critical care pts) @ -yes with significant uncontrolled bleeding Medical Decision Making - Medical Decision Making 72 male to the ER today for evaluation of epistaxis on anticoagulation. If his bleeding is able to be stopped here in the ER without difficulty and he can be discharged home - Lab Data Result diagrams: 03/21/23 23:54 03/21/23 23:54 Lab Results 03/21/23 03/21/23 03/21/23 Range/Units 23:54 23:54 23:54 WBC 11.8 H (3.8-10.6) k/uL RBC 5.47 (4.30-5.90) m/uL Hgb 16.8 (13.0-17.5) gm/dL Hct 48.2 (39.0-53.0) % MCV 88.1 (80.0-100.0) fL MCH 30.6 (25.0-35.0) pg MCHC 34.7 (31.0-37.0) g/dL RDW 13.2 (11.5-15.5) % Plt Count 210 (150-450) k/uL MPV 8.3 Neutrophils % 66 % Lymphocytes % 21 % Monocytes % 8 % Eosinophils % 3 % Basophils % 1 % Neutrophils # 7.7 (1.3-7.7) k/uL Lymphocytes # 2.5 (1.0-4.8) k/uL Monocytes # 0.9 (0-1.0) k/uL Eosinophils # 0.4 (0-0.7) k/uL Basophils # 0.1 (0-0.2) k/uL PT 10.7 (10.0-12.5) sec INR 1.0 (<1.2) APTT 27.2 (22.0-30.0) sec Sodium 139 (137-145) mmol/L Potassium 4.0 (3.5-5.1) mmol/L Chloride 104 (98-107) mmol/L Carbon Dioxide 22 (22-30) mmol/L Anion Gap 13 mmol/L BUN 22 H (9-20) mg/dL Creatinine 1.26 H (0.66-1.25) mg/dL Est GFR (CKD-EPI)AfAm 66 (>60 ml/min/1.73 sqM) Est GFR (CKD-EPI)NonAf 57 (>60 ml/min/1.73 sqM) Glucose 120 H (74-99) mg/dL Calcium 9.7 (8.4-10.2) mg/dL Total Bilirubin 0.7 (0.2-1.3) mg/dL AST 45 (17-59) U/L ALT 69 H (4-49) U/L Alkaline Phosphatase 78 (38-126) U/L Troponin I (0.000-0.034) ng/mL Total Protein 7.9 (6.3-8.2) g/dL Albumin 4.6 (3.5-5.0) g/dL 03/21/23 Range/Units 23:54 WBC (3.8-10.6) k/uL RBC (4.30-5.90) m/uL Hgb (13.0-17.5) gm/dL Hct (39.0-53.0) % MCV (80.0-100.0) fL MCH (25.0-35.0) pg MCHC (31.0-37.0) g/dL RDW (11.5-15.5) % Plt Count (150-450) k/uL MPV Neutrophils % % Lymphocytes % % Monocytes % % Eosinophils % % Basophils % % Neutrophils # (1.3-7.7) k/uL Lymphocytes # (1.0-4.8) k/uL Monocytes # (0-1.0) k/uL Eosinophils # (0-0.7) k/uL Basophils # (0-0.2) k/uL PT (10.0-12.5) sec INR (<1.2) APTT (22.0-30.0) sec Sodium (137-145) mmol/L Potassium (3.5-5.1) mmol/L Chloride (98-107) mmol/L Carbon Dioxide (22-30) mmol/L Anion Gap mmol/L BUN (9-20) mg/dL Creatinine (0.66-1.25) mg/dL Est GFR (CKD-EPI)AfAm (>60 ml/min/1.73 sqM) Est GFR (CKD-EPI)NonAf (>60 ml/min/1.73 sqM) Glucose (74-99) mg/dL Calcium (8.4-10.2) mg/dL Total Bilirubin (0.2-1.3) mg/dL AST (17-59) U/L ALT (4-49) U/L Alkaline Phosphatase (38-126) U/L Troponin I <0.012 (0.000-0.034) ng/mL Total Protein (6.3-8.2) g/dL Albumin (3.5-5.0) g/dL - EKG Data -: EKG Interpreted by Me (EKG is sinus 72 ID 139 QRS 102 QTC 357) Disposition Clinical Impression: Epistaxis Disposition: HOME SELF-CARE Condition: Good Instructions (If sedation given, give patient instructions): Nosebleed (ED) Is patient prescribed a controlled substance at d/c from ED?: No Referrals: Yane Brooke DO [Primary Care Provider] - 1-2 days Time of Disposition: 04:00
[2023-03-22 05:28] VITALS: BP 129/92; PULSE 82; RESP 16
== END 2023-03-22 05:09 | disposition home or self-care (01) ==
LOC: EC 23:05
DX: R04.0 Epistaxis (principal); J44.9 Chronic obstructive pulmonary disease, unspecified; Z79.51 Long term (current) use of inhaled steroids
CPT/HCPCS: 36415; 80053; 84484; 85025; 85610; 85730; 93005; 99284

== ENCOUNTER → 2024-05-12 | Outpatient (CLI) | payer MEDICARE ==
[~2024-05-12] MED LIST changes: +REGADENOSON 0.4 MG/5 ML SYRINGE IV PRN; -SODIUM CHLORIDE 0.9% 500 ML 500 ML in EMPTY BAG 1 BAG IV PRN; -ZOLEDRONIC ACID 4 MG in SODIUM CHLORIDE 0.9% 100 ML IV ONE
--- NOTE | 2024-05-12 12:23 | CA ---
Lexiscan Nuclear Stress Test Report Name: Lance Mcgraw Exam Date: 05/12/2024 11:14 Exam Location: [place] Stress Ht (in): 71 Wt (lb): 214 BSA: 2.17 Ordering Phys: Shaji Brooke MD Referring Phys: SHAJI BROOKE Technologist: HANNAH PEREZ Age: 73 Gender: M : 1950 Procedure CPT: Indications: I10 HTN ICD-10 Codes: Patient History: CP, NUMBNESS, HIGH CHOL, FAMILY HX, COPD. Medications: SEE LIST,,, Meds past 24 hrs: Pretest Chest Pain: STRESS TEST Lexiscan Protocol Exercise Duration (min:sec): 00:[address] Depressions (mm): Angina Score: Lopez Score: Resting HR (bpm): 73 Peak HR (bpm): 91 Resting BP (mmHg): 169 / 103 Peak BP (mmHg): 168 / MPHR: 149 Target HR: 127 % MPHR: 61 METS: Total Dose: Peak Dose: Atropine: Double Product: 11723 BP Response: Stress Termination: THE BP AND ECG ARE NOT THE PT Stress Symptoms: THE BP AND ECG ARE NOT THE PT Stress Summary: ECG ANALYSIS Resting ECG: Stress ECG: CONCLUSIONS RESTING EKG: Normal sinus rhythm, normal EKG Patient recieved IV infusion of Lexiscan 0.4mg and at peak infusion STRESS EKG showed: No significant ST-T wave changes diagnostic for ischemia by ST segment analysis ARRYTHMIAS: Frequent PVCs noticed during stress and during recovery. No sustained arrhythmias. CONCLUSION: 1. Normal hemodynamic and clinical response to Lexiscan infusion. 2. Non-ischemic EKG response to lexiscan infusion Please refer to the nuclear imaging portion of this stress test for complete interpretation of the study. Dr Calvin Smith (Electronically Signed) Final Date: 12 May 2024 12:22
--- NOTE | 2024-05-12 13:39 | NM ---
EXAMINATION TYPE: NM stress lexiscan cardiolite DATE OF EXAM: 05/12/2024 COMPARISON: NONE CLINICAL INDICATION: Male, 73 years old with history of I10 HTN, TECHNIQUE: After the intravenous administration of 10.1 mCi Tc 99m Sestamibi - Cardiolite resting SP ECT images acquired 90 minutes post injection. At peak stress 26 mCi Tc 99m Sestamibi - Stress images obtained 65 minutes post injection The patient was stressed with 0.4mg Lexiscan. FINDINGS: No fixed defects are evident. There is minimal diminished signal within the distal anterior wall on stress images. This is slightly improved on resting images. A small stress-induced ischemic change may be at the distal anterior wal l. Correlate for EKG changes. There is severe global hypokinesia. Ejection fraction is calculated to be very low at 27 %. IMPRESSION: 1. There may be a small reversible perfusion defect along the distal anterior wall near the cardiac a pex. 2. Global hypokinesia. 3. Very low ejection fraction of 27% [facility], , 05/12/2024 1:37 PM
== END | disposition home or self-care (01) ==
LOC: RADNMMAIN 07:11
PROVIDERS: ATTEND Family Medicine
DX: I10 Essential (primary) hypertension (principal); I51.89 Other ill-defined heart diseases; I49.3 Ventricular premature depolarization
CPT/HCPCS: 93017; 78452; A9500; J2785

== ENCOUNTER → 2024-09-30 | Outpatient (CLI) | payer MEDICARE ==
[2024-09-30 19:03] LABS: HCT 50.3 % (39.6-50.0); HGB 16.4 g/dL (13.0-17.0); MCH 28.6 pg (27.0-32.0); MCHC 32.6 g/dL (32.0-37.0); MCV 87.6 FL (80.0-97.0); NRBC Per 100 WBC 0 X 10*3/uL (0.00-0.01); Platelet Count 209 X 10*3/uL (140-440); RBC 5.74 X 10*6/uL (4.40-5.60); RDW 13.8 % (11.5-14.5); WBC 9.31 X 10*3/uL (4.50-10.00)
[2024-09-30 19:26] LABS: ALT 19 U/L (10-49); AST 22 U/L (14-35); Albumin 4.6 g/dL (3.8-4.9); Albumin/Globulin Ratio 1.92 Ratio (1.60-3.17); Alkaline Phosphatase 71 U/L (41-126); Anion Gap 15.80 mmol/L (4.00-12.00); BUN/Creat Ratio 9.88 Ratio (12.00-20.00); Blood Urea Nitrogen 16.8 mg/dL (9.0-27.0); Calcium 9.4 mg/dL (8.7-10.3); Carbon Dioxide 21.2 mmol/L (21.6-31.8); Chloride 106 mmol/L (96-109); Cholesterol 192.00 mg/dL (0.00-200.00); Globulin 2.4 g/dL (1.6-3.3); Glucose 108 mg/dL (70-110); HDL Cholesterol 34.10 mg/dL (40.00-60.00); LDL Cholesterol,Calculated 126.7 mg/dL (0.0-131.0); Potassium 4.8 mmol/L (3.5-5.5); Sodium 143 mmol/L (135-145); Total Protein 7.0 g/dL (6.2-8.2); Triglycerides 156.00 mg/dL (0.00-149.00); VLDL Calculation 31.20 mg/dL (5.00-40.00)
[2024-09-30 22:27] LABS: NT-Pro-B-Type Natriuretic Pept 960 pg/mL (0-125)
== END | disposition home or self-care (01) ==
LOC: LABWHC1 12:27
PROVIDERS: ATTEND Student in an Organized Health Care Education/Training Program
DX: I50.9 Heart failure, unspecified (principal); E11.9 Type 2 diabetes mellitus without complications; E78.5 Hyperlipidemia, unspecified; E03.9 Hypothyroidism, unspecified; D72.9 Disorder of white blood cells, unspecified; R79.89 Other specified abnormal findings of blood chemistry
CPT/HCPCS: 36415; 80053; 80061; 83036; 83880; 84443; 85027